=== PATIENT | female | born 1965 | race Caucasian/White ===

== ENCOUNTER 2018-07-06 00:19 | Outpatient (CLI) | payer MEDICAID, SELFPAY ==
--- NOTE | 2018-07-06 10:06 | DI.RAD_ITS ---
SYMPTOMS/DIAGNOSIS: CHRONIC RT GREAT TOE PAIN, M79.674 RIGHT GREAT TOE: Four views. No priors. At the first metatarsal phalangeal joint there is moderate joint space narrowing and periarticular spurring. Mild subchondral sclerosis is seen. The interphalangeal joint is well maintained. No acute fracture, dislocation, lytic or sclerotic lesion is seen. The soft tissues are unremarkable. IMPRESSION: Moderate degenerative changes of the first metatarsal phalangeal joint.
== END 2018-07-06 00:39 ==
PROVIDERS: PCP Nurse Practitioner; Visit Provider Nurse Practitioner
DX: M79.674 Pain in right toe(s) (principal); M19.071 Primary osteoarthritis, right ankle and foot
CPT/HCPCS: 73660

== ENCOUNTER 2018-07-17 00:54 | Outpatient (CLI) | payer MEDICAID, SELFPAY ==
--- NOTE | 2018-07-17 13:00 | DI.MAMMO_ITS ---
SYMPTOMS/DIAGNOSIS: SCREENING, Z12.31 MAMMOGRAM: Mammograms were interpreted according to the usual protocol including computer analysis with CAD system, tomosynthesis and C view imaging. Comparison with prior examinations. Breast density A. No suspicious masses or microcalcifications are seen. The nodule in the medial left breast appears stable. The skin and axilla are unremarkable. IMPRESSION: No evidence for malignancy. Yearly mammography is recommended. Category 2. MQSA ASSESSMENT OF FINDINGS: Negative with benign findings. Category 2. Patient will receive a letter notifying them of these results. BI-RAD category A. The breasts are almost entirely fatty.
== END 2018-07-17 01:14 ==
PROVIDERS: PCP Nurse Practitioner; Visit Provider Nurse Practitioner
DX: Z12.31 Encounter for screening mammogram for malignant neoplasm of breast (principal)
CPT/HCPCS: 77063; 77067

== ENCOUNTER 2018-08-21 13:35 | Outpatient (CLI) | payer MEDICAID, SELFPAY ==
[2018-08-21 14:25] LABS: HCT 40.7 % (36.0-46.0); HGB 13.2 g/dL (12.0-15.5); Mean Corp. HGB Concentration 32.4 g/dL (32.0-36.0); Mean Corpuscular Hemoglobin 28.1 pg (27.0-33.0); Mean Corpuscular Volume 86.8 fL (80-95); Mean Platelet Volume 9.2 fL (8.0-11.0); Platelet Count 292 x1000/uL (130-400); RBC 4.69 m/cumm (4.00-5.20); RBC Distribution Width 12.8 % (11.7-14.6); White Blood Cell Count 5.79 k/cumm (4.4-10.8)
[2018-08-21 14:43] LABS: Hemoglobin A1C 6.7 % (4.5-6.2)
[2018-08-21 15:23] LABS: ALT 20 U/L (12-78); AST 14 U/L (15-37); Albumin 3.7 g/dL (3.4-5.0); Alkaline Phosphatase 107 U/L (46-116); Anion Gap 10.3 mmol/L (3-11); BUN 17 mg/dL (7-18); Bilirubin, Total 0.2 mg/dL (0.2-1.0); CO2 26.7 mmol/L (21.0-32.0); CREATININE 0.87 mg/dL (0.55-1.02); Calcium 9.2 mg/dL (8.5-10.1); Chloride 103 mmol/L (98-107); Cholesterol 233 mg/dL (50-200); Glucose 119 mg/dL (70-100); HDL Cholesterol 51 mg/dL (40-60); LDL CHOLESTEROL 155 mg/dL (<100); Potassium 4.1 mmol/L (3.5-5.1); Sodium 140 mmol/L (136-145); Total Protein 7.2 g/dL (6.4-8.2); Triglyceride 116 mg/dL (30-150)
== END 2018-08-21 13:55 ==
PROVIDERS: PCP Nurse Practitioner; Visit Provider Podiatrist Foot & Ankle Surgery
DX: E78.00 Pure hypercholesterolemia, unspecified (principal); R73.01 Impaired fasting glucose; F33.9 Major depressive disorder, recurrent, unspecified; M79.9 Soft tissue disorder, unspecified
CPT/HCPCS: 36415; 80053; 80061; 83721; 85027; 83036

== ENCOUNTER 2018-08-31 07:56 | Day surgery (SDC) | payer MEDICAID, SELFPAY ==
--- NOTE | 2018-08-31 06:19 | W.COLOREPORT ---
Date of service: 08/31/18 Time of Service: 09:07 Colonoscopy Report Date of procedure: 08/31/18 Pre-op diagnosis general: Colon Cancer Screening Post-op diagnosis procedure note: other (multiple polyps) Procedure: colonoscopy with polypectomy by cold forceps Surgeon: Kylie Keller Anesthesia proc note operative: MAC (Kimberlee Carlson,SIDNEY/ ASA 2) Estimated blood loss (mL): 5 Pathology: other (ascending polyp, sigmoid polyp x6) Complications: None Disposition: same day Indications: Mrs. De La Cruz is a pleasant 52 year old female who was seen in the office for a screening colonoscopy. Risks, benefits and complications have been reviewed. Complications include but are not limited to bleeding, pain, perforation, missed small lesion/polyp, sore throat, aspiration and adverse reaction to the medications. Questions were entertained and answered to their satisfaction and they wished to proceed. No guarantees were given or implied. Prep: Miralax/Dulcolax Procedure Start Time: 09:07 Procedure End Time: 09:36 Retraction Time: 20 Findings: multiple polyps. Most are more then likely hyperplastic Procedure Description: After informed consent was obtained the patient was taken to the procedure room and placed in a left decubitous position. Monitors were applied and a time out was done. The patients name, date of , procedure, allergies to medications and metal in their body was reviewed. The patient was then sedated. Once sedated and comfortable a rectal exam was done. External exam was normal. Internal exam revealed a normal sphincter tone and no palpable masses. The scope was then introduced and retro-flexed. No internal hemorrhoids were identified. The scope was then advanced to the cecum without difficulty. The TI and appendiceal orifice were identified. The prep was adequate. The scope was then slowly retracted over 20 minutes back into the rectum. Polyps were removed in the ascending colon x1 and in the sigmoid colon x5. The scope was removed and the patient was woken up and taken back to Same day surgery in stable condition. The patient tolerated the procedure well and there were no immediate complications. Follow up: The patient should follow up in 3-5 years unless they develop changes in bowel habits or other new gastrointestinal complaints.
--- NOTE | 2018-08-31 06:21 | W.PM.DSUDISC ---
Discharge Plan Disposition Patient Disposition: HOME Condition: Good Discharge Details Reason For Visit: Colon Cancer Screening Attending Provider: Kylie Keller Primary Care Provider: Sidra Balderas Home Meds and New Rx's Prescriptions: Continued aspirin 325 mg tablet 325 mg PO DAILY RF: 0 sertraline 100 mg tablet 200 mg PO DAILY Qty: 180 RF: 1 prazosin 5 mg capsule 15 mg PO HS Qty: 90 RF: 3 ibuprofen 800 mg tablet 800 mg PO TID PRN (Reason: fever or pain) Qty: 90 RF: 3 acetaminophen [Tylenol Arthritis Pain] 650 mg tablet extended release 650 mg PO Q8H PRN (Reason: fever or pain) Qty: 90 RF: 3 Discontinued bisacodyl [Dulcolax (bisacodyl)] 5 mg tablet,delayed release (DR/EC) 5 mg PO ONCE Qty: 4 RF: 0 polyethylene glycol 3350 17 gram/dose powder 255 g PO ONCE Qty: 255 RF: 0 Discharge Instructions Instructions: Colonoscopy (DC), Colorectal Polyps (DC) Additional Instructions: Findings: multiple polyps Follow up: 3-5 years Please call if you develop: fevers >101.5 Nausea or Vomiting Abdominal pain that is not transient DAY SURGERY UNIT POST COLONOSCOPY INSTRUCTIONS 1. Because there will be medication in your system for the next 24 hours, you may feel a little sleepy. Your coordination will be affected. Therefore: a. Do not drive or operate dangerous equipment for 24 hours. b. Do not drink alcohol beverages for 24 hours (not even beer). c. Plan to go home and rest for the day. 2. Generally there are no restrictions on your activity after a day or so has gone by, but you may feel a bit fatigued for a few days. 3 After you arrive home you may have a light meal and return to a normal diet as you can tolerate it without feeling sick to your stomach. 4. After surgery, you may feel pain or discomfort. This should be only transient, but if it persists please contact your doctor. 5. If there are any questions regarding the findings of your procedure, please feel free to contact your doctor. 6. If you are unable to contact your doctor with a problem, contact the hospital at [phone]. 7. Continue all your regular medications unless directed otherwise. I understand the above instructions and have no questions. Signature of Patient or Responsible Adult Escort Date/Time Name of Responsible Adult Escort Signature of Nurse Date/Time Activity:: Activity as Tolerated Diet:: As Tolerated Discharge Orders Discharge Orders: Discharge Order (Routine); Ordered 08/31/18 Ordered By: Kylie Keller DS: Diagnosis Discharge Diagnosis (1) S/P colonoscopy: Status: Acute (2) Colorectal polyps: Status: Acute
[2018-08-31 08:14] VITALS: BP 108/77; PULSE 66; RESP 16; TEMP 36.2; O2SAT 98
[2018-08-31] MEDS: Lactated Ringers 1,000 ML 80 ML IV (08:40)
--- NOTE | 2018-08-31 09:21 | BOWEL_PTH ---
PATIENT: Telma De La Cruz LOC: [facility] U#:[id number] AGE/SX: 52/F ROOM: RE08/31/[address]: Kylie Keller MD : 1965 BED: DIS: 08/31/2018 SPEC #: [id number] RECD: 08/31/18 12:51 STATUS: SENTHIL REMarian #: [id number] NICOLAS: 08/31/18 09:[address]: Kylie Keller DEPT: Surgical Specimen RECD BY: Barby Atkins ENTERED: 08/31/18 12:52 SP TYPE: Bowel OTHR DR: Sidra Balderas APRN Tissues: 1 - BIOPSY BOWEL 2 - BIOPSY BOWEL Procedures: GROSS AND MICRO LEVEL 4 Comments: [id number]
[2018-08-31 09:41] VITALS: BP 111/56; PULSE 57; RESP 18; TEMP 36.2; O2SAT 94
== END 2018-08-31 10:45 | disposition home or self-care (01) ==
LOC: SUR 07:56
PROVIDERS: PCP Nurse Practitioner; Visit Provider Surgery
PROC: 0DJD8ZZ Inspection of Lower Intestinal Tract, Via Natural or Artificial Opening Endoscopic (ICD-10-PCS; CPT 45378; principal; 2018-08-31 09:15)
DX: Z12.11 Encounter for screening for malignant neoplasm of colon (principal); D12.2 Benign neoplasm of ascending colon; K63.5 Polyp of colon; E11.9 Type 2 diabetes mellitus without complications; F17.210 Nicotine dependence, cigarettes, uncomplicated
CPT/HCPCS: 45380; 88305

== ENCOUNTER 2018-09-03 00:51 | Outpatient (CLI) | payer MEDICAID, SELFPAY ==
[2018-09-03] MEDS: Gadoterate meglumine 20 ML VIAL 15 ML IVP (14:51)
--- NOTE | 2018-09-03 15:09 | DI.MRI_ITS ---
SYMPTOM/DIAGNOSIS: SOFT TISSUE MASS, M79.9, RT FOOT PAIN RIGHT FOOT MRI: Pre and post contrast MRI of the right foot was performed. An external marker was placed on the dorsal aspect of the foot at the level of the first and second metatarsal heads. The underlying soft tissues show no evidence of a mass. Following contrast administration, no enhancing lesion is identified. There is edema seen in the soft tissues in the intermetatarsal region at the first and second heads likely reflecting bursitis. At the first metatarsal phalangeal joint, there is subchondral edema and joint space narrowing. There are osteophytes arising from both the base of the proximal phalanx and the head of the first metatarsal. The findings are most suggestive of osteoarthritis. No findings to suggest an occult fracture or osteomyelitis are present. No findings to suggest avascular necrosis are seen. No significant joint effusions are present. The visualized tendons appear grossly unremarkable. IMPRESSION: 1. No evidence of a soft tissue mass identified in the region of the external marker. 2. Degenerative changes seen at the first metatarsal phalangeal joint. 3. Fluid between the first and second metatarsal heads suggesting bursitis.
--- NOTE | 2018-09-03 15:58 | DI.VRAD_ITS ---
EXAM: MRI Right Lower Extremity Without and With Contrast, Foot EXAM DATE/TIME: 09/03/2018 3:06 PM CLINICAL HISTORY: 52 years old, female; Condition or disease; Other: Soft tissue mass TECHNIQUE: MR of the Right foot without and with intravenous contrast. COMPARISON: CR XR toe RT great 07/06/2018 9:57 AM FINDINGS: An external marker is present over the dorsal aspect at the level of the first and second metatarsals distally. The underlying subcutaneous soft tissues appear unremarkable. No discrete mass is identified here or elsewhere. Deeper soft tissues, between the first and second metatarsal heads, there is a small nonenhancing fluid density focus, suggestive of intermetatarsal bursitis. No similar finding is evident elsewhere. There are degenerative changes, most pronounced at the first metatarsophalangeal joint, as on the radiographs. There is no significant effusion of this or any other joints. Marrow edema about this joint is likely degenerative. There is no evidence for fracture. The joint spaces are normally aligned. There is no significant tendon abnormality or peritendinous collection. IMPRESSION: 1. No mass identified, including at the level of an external marker over the dorsal aspect of the first and second metatarsals distally. 2. Small fluid between the first and second metatarsal heads, suggesting intermetatarsal bursitis. 3. Degenerative changes, as on radiographs of 07/06/18. Dictated and Authenticated by: Jose Flores MD. Ordering:SHAARD Lee MD
== END 2018-09-03 01:11 ==
PROVIDERS: PCP Nurse Practitioner; Visit Provider Podiatrist Foot & Ankle Surgery
DX: R22.41 Localized swelling, mass and lump, right lower limb (principal); M79.89 Other specified soft tissue disorders; M79.671 Pain in right foot; M19.071 Primary osteoarthritis, right ankle and foot; M71.571 Other bursitis, not elsewhere classified, right ankle and foot
CPT/HCPCS: 73720

== ENCOUNTER 2018-11-20 13:59 | Outpatient (CLI) | payer MEDICAID, SELFPAY ==
[2018-11-21 13:30] LABS: Rubella IgG Ab (UVM) Negative
[2018-11-23 12:19] LABS: HBs Antibody, Quant <3.1 mIU/mL; Hepatitis B Surface Ab Negative
== END 2018-11-20 14:19 ==
PROVIDERS: PCP Nurse Practitioner; Visit Provider Nurse Practitioner
DX: Z01.84 Encounter for antibody response examination (principal)
CPT/HCPCS: 36415; 86706; 86762

== ENCOUNTER 2019-05-25 11:47 | Outpatient (CLI) | payer MEDICAID, SELFPAY ==
[2019-05-25 13:30] LABS: Anion Gap 8.7 mmol/L (3-11); BUN 13 mg/dL (7-18); CO2 28.3 mmol/L (21.0-32.0); CREATININE 0.85 mg/dL (0.55-1.02); Calcium 9.2 mg/dL (8.5-10.1); Calculated LDL 118 mg/dL; Chloride 107 mmol/L (98-107); Cholesterol 199 mg/dL (50-200); Glucose 97 mg/dL (70-100); HDL Cholesterol 47 mg/dL (40-60); Potassium 3.7 mmol/L (3.5-5.1); Sodium 144 mmol/L (136-145); Triglyceride 171 mg/dL (30-150)
== END 2019-05-25 12:07 ==
PROVIDERS: PCP Nurse Practitioner; Visit Provider Nurse Practitioner
DX: E11.9 Type 2 diabetes mellitus without complications (principal); Z01.818 Encounter for other preprocedural examination; E78.00 Pure hypercholesterolemia, unspecified
CPT/HCPCS: 36415; 80048; 80061

== ENCOUNTER 2019-08-20 09:01 | Outpatient (CLI) | payer MEDICAID, SELFPAY ==
[2019-08-20 09:19] LABS: HGB 13.6 g/dL (12.0-15.5); Mean Corp. HGB Concentration 31.6 g/dL (32.0-36.0); Mean Corpuscular Hemoglobin 27.5 pg (27.0-33.0); Mean Corpuscular Volume 86.9 fL (80-95); Mean Platelet Volume 8.9 fL (8.0-11.0); Platelet Count 374 x1000/uL (130-400); RBC 4.95 m/cumm (4.00-5.20); RBC Distribution Width 13.1 % (11.7-14.6); White Blood Cell Count 5.74 k/cumm (4.4-10.8)
[2019-08-20 09:43] LABS: Hemoglobin A1C 6.5 % (3.8-5.6)
[2019-08-20 10:22] LABS: ALT 23 U/L (14-59); AST 15 U/L (15-37); Albumin 3.6 g/dL (3.4-5.0); Alkaline Phosphatase 105 U/L (46-116); Anion Gap 9.6 mmol/L (3-11); BUN 14 mg/dL (7-18); Bilirubin, Total 0.2 mg/dL (0.2-1.0); CO2 25.4 mmol/L (21.0-32.0); CREATININE 0.81 mg/dL (0.55-1.02); Calculated LDL 209 mg/dL (<100); Chloride 105 mmol/L (98-107); Cholesterol 279 mg/dL (<200); Glucose 131 mg/dL (74-106); HDL Cholesterol 46 mg/dL (40-60); Potassium 4.1 mmol/L (3.5-5.1); Sodium 140 mmol/L (136-145); Triglyceride 120 mg/dL (<150)
== END 2019-08-20 09:21 ==
PROVIDERS: PCP Nurse Practitioner; Visit Provider Nurse Practitioner
DX: E11.9 Type 2 diabetes mellitus without complications (principal); I10 Essential (primary) hypertension; R42 Dizziness and giddiness; R25.3 Fasciculation
CPT/HCPCS: 36415; 80053; 80061; 85027; 83036; 84443

== ENCOUNTER 2019-08-26 03:06 | Outpatient (CLI) | payer MEDICAID, SELFPAY ==
--- NOTE | 2019-08-26 13:00 | NS.NUTBLAN_ITS ---
Telma was referred to me for hyperlipidemia. Met with Telma in office today. Chart review indicates borderline diabetes (A1C: 6.4%), elevated cholesterol, elevated LDL, well controlled HDL and triglycerides. BMI 32. Reviewed risks associated with lab values and reviewed her diet/exercise habits. Diet recall indicates reliance on convenience foods, high amounts of saturated fats and low in fruit/vegetable intake. Telma is sedentary in winter time. Educated Telma on how to follow a Mediterranean diet with emphasis on lean protein, vegetarian protein sources, unsaturated fats and wholel grains. Telma was engaged in education and education material and contact information provided for follow. I am confident that Telma will make positive choices for her health. Plan: 1. 10% weight loss, 2. 30 min cardio daily, 3. follow Mediterranean diet plan. 4. follow up with physician as recommended.
== END 2019-08-26 03:26 ==
PROVIDERS: PCP Nurse Practitioner; Visit Provider Nurse Practitioner
DX: E78.5 Hyperlipidemia, unspecified (principal); R73.03 Prediabetes; Z71.3 Dietary counseling and surveillance
CPT/HCPCS: 97802

== ENCOUNTER 2020-03-02 03:09 | Outpatient (CLI) | payer MEDICAID, SELFPAY ==
[2020-03-02 10:24] LABS: Calculated LDL 183 mg/dL (<100); Cholesterol 248 mg/dL (<200); HDL Cholesterol 42 mg/dL (40-60); Triglyceride 116 mg/dL (<150)
== END 2020-03-02 03:29 ==
PROVIDERS: PCP Nurse Practitioner; Visit Provider Nurse Practitioner
DX: E78.5 Hyperlipidemia, unspecified (principal)
CPT/HCPCS: 36415; 80061

== ENCOUNTER 2020-05-30 02:16 | Outpatient (CLI) | payer MEDICAID, SELFPAY ==
[2020-05-30 09:07] LABS: HCT 39.6 % (36.0-46.0); HGB 12.3 g/dL (11.2-15.7); MCH 27.6 pg (27.0-33.0); MCHC 31.1 % (32.0-36.0); MCV 88.8 fL (80-95); MPV 9.3 fL (8.0-11.0); Platelet Count 310 10^3/uL (130-400); RBC 4.46 10^6/uL (3.93-5.22); RDW 12.7 % (11.7-14.6); RDW-SD 41.6 fL; WBC 6.03 10^3/uL (4.4-10.8)
[2020-05-30 09:08] LABS: Hemoglobin A1C 6.7 % (<5.7)
[2020-05-30 10:04] LABS: ALT 28 U/L (14-59); AST 17 U/L (15-37); Albumin 3.6 g/dL (3.4-5.0); Alkaline Phosphatase 127 U/L (46-116); BUN 12 mg/dL (7-18); Bilirubin, Total 0.2 mg/dL (0.2-1.0); CREATININE 0.88 mg/dL (0.55-1.02); Calcium 8.5 mg/dL (8.5-10.1); Chloride 106 mmol/L (98-107); Glucose 146 mg/dL (74-106); Potassium 4.2 mmol/L (3.5-5.1); Sodium 142 mmol/L (136-145); Total Protein 6.6 g/dL (6.4-8.2)
[2020-05-30 10:15] LABS: Calculated LDL 75 mg/dL (<100); Cholesterol 139 mg/dL (<200); HDL Cholesterol 44 mg/dL (40-60); Triglyceride 104 mg/dL (<150)
== END 2020-05-30 02:36 ==
PROVIDERS: PCP Nurse Practitioner; Visit Provider Nurse Practitioner Family
DX: I95.1 Orthostatic hypotension (principal); E11.9 Type 2 diabetes mellitus without complications
CPT/HCPCS: 36415; 80053; 80061; 85027; 83036

== ENCOUNTER 2020-09-01 02:57 | Outpatient (CLI) | payer MEDICAID, SELFPAY ==
--- NOTE | 2020-09-01 08:00 | DI.RAD_ITS ---
EXAM: XR CHEST 2V PA LATERAL CLINICAL HISTORY: Dry cough for one year. Smokes about 5 cigs/day,R05 TECHNIQUE: 2D digital imaging was performed. COMPARISON: No exams were available for comparison FINDINGS: MEDIASTINUM: Normal. HEART: Normal. PULMONARY VASCULATURE: Normal. LUNGS: Clear. PLEURAL SPACE: No pleural effusion or pneumothorax. BONE:Normal. OTHER FINDINGS:Normal. IMPRESSION: No acute pulmonary findings. DATA REPOSITORY: RADIATION DOSE DELIVERED:
== END 2020-09-01 02:58 ==
LOC: DI 02:57
PROVIDERS: PCP Nurse Practitioner; Visit Provider Nurse Practitioner
DX: F17.210 Nicotine dependence, cigarettes, uncomplicated (principal); R05 Cough
CPT/HCPCS: 71046

== ENCOUNTER 2021-01-03 01:14 | Outpatient (CLI) | payer MEDICAID, SELFPAY ==
--- NOTE | 2021-01-03 15:20 | DI.MAMMO_ITS ---
Exam(s) MAMMO SCREENING EXAM: MAMMO SCREENING CLINICAL HISTORY: screening,Z12.39. TECHNIQUE: Bilateral full field digital CC and MLO mammographic images were obtained with 3D tomosyn thesis and utilizing computer aided detection (CAD). COMPARISON: Prior mammograms dating back to 2017, the most recent being June 2018. FINDINGS: There are no CAD designations. There are no new significant focal findings in the right breast. In the left breast there is a medially located nodular density which is unchanged from 2017 and there fore benign, this measuring approximately 9 x 7 millimeters and located 9 cm in from the nipple. On the present study there is a subtle suggestion of a new noncalcified inferiorly located nodule in the medial aspect of the left breast measuring approximately 7 x 6 millimeters and located approximat cary 13 cm in from the nipple. There is no significant architectural distortion nor skin thickening-retraction. IMPRESSION: No radiographic evidence of malignancy in right breast. In addition to a stable left breast nodule there is suggestion of an additional possible nodule locat ed inferiorly, as described above. Spot compression and possible ultrasound recommended. BI-RADS Category 0 - Assessment Incomplete: Need additional imaging evaluation Breast Density - Category B - Scattered areas of fibroglandular density Breast density Category C or D implies that the patient has dense breast tissue. Dense breast tissue can make it harder to find cancer on a mammogram. Dense breast tissue is also associated with an incr eased risk of breast cancer. This information about the result of the mammogram report was provided to the patient to raise their awareness. Use this report when you speak with the patient about their risks for breast cancer, which includes their family history. At that time, you may recommend additional screening tests (Ultrasoun d or MRI) as these tests may add significant information. A negative radiographic report should not delay biopsy if a dominant or clinically suspicious mass is present. Up to ten percent of cancers are not identified on mammography. A negative report may reinforce clinical impression. Adenosis and dense breasts may obscure an underlying neoplasm. False positive reports average 6 to 10%. Patient will receive a letter notifying them of these results.
== END 2021-01-03 01:34 ==
PROVIDERS: PCP Nurse Practitioner; Visit Provider Nurse Practitioner
DX: Z12.31 Encounter for screening mammogram for malignant neoplasm of breast (principal); R92.8 Other abnormal and inconclusive findings on diagnostic imaging of breast
CPT/HCPCS: 77063; 77067

== ENCOUNTER 2021-01-11 03:15 | Outpatient (CLI) | payer MEDICAID, SELFPAY ==
--- NOTE | 2021-01-11 13:26 | DI.MAMMO_ITS ---
Exam(s) MAMMO SCREEN CALL BACK UNI EXAM: MAMMO SCREEN CALL BACK UNI-LEFT CLINICAL HISTORY: ? SUBTLE SUGGESTION NODULE LT BREAST. TECHNIQUE: Unilateral spot mammographic images were obtained with 3D tomosynthesis and utilizing Kula Causeser aided detection (CAD). .. COMPARISON: Prior mammograms were reviewed. This additional imaging was performed due to findings described on the recent screening mammogram of . FINDINGS: Additional mammographic views performed todaywas performed with a skin marker of this area and reveal s that this new nodular density inferomedially in the left breast corresponds to a skin mole. Ultrasound was therefore not performed. IMPRESSION: Benign findings. No radiographic evidence of malignancy in left breast. Appropriate follow-up is to keep this patient yearly mammogram schedule, with earlier imaging if a se lf detected breast changes noted. The patient was informed of these findings and recommendations prior to leaving the department today. BI-RADS Category 2 - Benign Findings Breast Density - Category B - Scattered areas of fibroglandular density Breast density Category C or D implies that the patient has dense breast tissue. Dense breast tissue can make it harder to find cancer on a mammogram. Dense breast tissue is also associated with an incr eased risk of breast cancer. This information about the result of the mammogram report was provided to the patient to raise their awareness. Use this report when you speak with the patient about their risks for breast cancer, which includes their family history. At that time, you may recommend additional screening tests (Ultrasoun d or MRI) as these tests may add significant information. A negative radiographic report should not delay biopsy if a dominant or clinically suspicious mass is present. Up to ten percent of cancers are not identified on mammography. A negative report may reinforce clinical impression. Adenosis and dense breasts may obscure an underlying neoplasm. False positive reports average 6 to 10%. Patient will receive a letter notifying them of these results.
== END 2021-01-11 03:35 ==
PROVIDERS: PCP Nurse Practitioner; Visit Provider Nurse Practitioner
DX: Z12.31 Encounter for screening mammogram for malignant neoplasm of breast (principal); R92.8 Other abnormal and inconclusive findings on diagnostic imaging of breast
CPT/HCPCS: 77063; 77067

== ENCOUNTER 2021-03-15 09:32 | Outpatient (CLI) | payer MEDICAID, SELFPAY ==
--- NOTE | 2021-03-15 09:30 | RT.EKG_ITS ---
APPROVED REPORT Exam: Resting ECG Reason for Exam: h/o tachycardia Patient Location: O HR:67 bpm ECG Measurements Heart Rate 67 AXIS LA 125 P 10 QRSd 79 QRS 52 QT 398 T 64 QTc 420 Conclusion Sinus rhythm...normal P axis, V-rate 60- 99 Normal Electrocardiogram
== END 2021-03-15 09:33 | disposition home or self-care (01) ==
LOC: DI.KIM 09:33
PROVIDERS: PCP Nurse Practitioner; Visit Provider Nurse Practitioner
DX: R00.0 Tachycardia, unspecified (principal)
CPT/HCPCS: 93010

== ENCOUNTER 2021-03-16 07:16 | Outpatient (RCR) | payer MEDICAID, SELFPAY ==
--- OUTSIDE RECORDS SUMMARY | 2021-03-16 07:22 | XMS_ITS ---
:1965 Author Organization [facility] Address [address] [place] [address] Care Team Providers Name Role Phone Ruelle Unavailable Unavailable PROBLEMS Unknown Problems ALLERGIES Substance Reaction Event Type Date Status penicillin Unknown Non Drug Allergy Feb, Active ENCOUNTERS Encounter Location Date Diagnosis [facility] Feb, [place] [address] foot, initia l encounter S96.911A [facility], [place] [address] [facility] [place] [address] [facility], Jul, [place] [address] M20.5X1 and Buni on of left foot M21.612 [facility] Jun, [place] [address] M20.5X1 and Bunion of left foot M21.612 [facility] [address] [facility] Jun, [place] [address] M20.5X1 [facility] [address] [facility] C May, [place] [address] M20.5X1 SURGERY [address] [facility] May, [place] [address] SURGERY [address] [facility] May, [place] [address] [facility], [place] [address] [facility], [place] [address] [facility] [address] [facility] C Mar, [place] [address] M20.5X1 and Bunion of left foot M21.612 [facility] [address] [facility] C Sep, [place] [address] M20.5X1 [address]MIN[address]ATION [address] [facility] [address] Aug, [place] [address] [facility] [address] [facility], Jul, [place] [address] [facility] [address] [facility] [address] Jul, Soft tissue [place]79[place]9 [place] [address] Bunion of le ft foot M21.612 [facility] [address] [facility], [place] [address] IMMUNIZATIONS No Known Immunizations SOCIAL HISTORY Qualifiers Date Current Smoker REASON FOR REFERRAL FUNCTIONAL STATUS PLAN OF CARE Activity Details Follow Up prn Reason: Future Test X Foot L 3V [id number] Future Test BUN 20180820 Future Test CREATININE W EGFR 20180820 Future Test MR Lower Ext R w + w/o (7372 0) 20180820 VITAL SIGNS Height 62 in 2020-02-23 Weight 180 lbs 2020-02-23 BMI 32.92 kg/m2 2020-02-23 Temperature 97.2 degrees Fahrenheit 2020-02-23 Heart Rate 66 /min 2020-02-23 Respiratory Rate 18 /min 2020-02-23 Oximetry 97 % 2020-02-23 MEDICATIONS Medication Instructions Dosage Frequency Start End Duration Statu s Date Date B12 Folate as directed Active 800-800 MCG traZODone HCl Orally Once a 1 tablet at 24h 30 day(s ) Active 50 MG day bedtime as needed Prazosin HCl 2 orally once a 3 cap(s) 24h Ac tive mg day D3 Adult 1000 Orally Once a 1 tablet 24h 30 day(s) A ctive UNIT day Aspirin 325 mg orally once a 1 tab(s) 24h 30 day(s) Active day Sertraline HCl orally once a 1 tab(s) 24h 30 day(s) Active 100 mg day PROCEDURES No Known procedures RESULTS Name Result Date Reference Range X Foot R 3V 2019-06-10 See Below For Report MULTIPLE LABS 2019-05-25 MULTIPLE LABS 2018-08-21 BUN 2018-08-21 BUN 17 BUN BUN* CREATININE W EGFR 2018-08-21 CREATININE STANDARDIZED 0.87 ESTIMATED GLOMERULAR FILTRATION >=60.00 EGFR INTERPRETATION AGE CREATININE* MR Lower Ext R w + w/o (93667) 2018-09-03 Image Accessible REASON FOR VISIT follow up , pt states that she is here for a follow up visit , pt states that she is having pain in the ball area of the right foot,, pt states that the pain started again on or around 01/28/20 and is mostly when she takes a step on the ball of the foot, follow up,no symptoms, xray question, 3 mo f/u r hallux limitus Patient need x-rays of left foot at this visit-HL, Referral done , 11/07 reschedule patient, Post op #4, referral done, Last seen by ALR on 06/30/19 for Post Op 3 -HL , DOS 06/10/19 Procedure Cheilectomy of the right first metatarsophalangeal joint -HL, Patient may need xrays done today -HL, pt states that she is still having pain , pt atates that sriving makes the pain worse , pt states that she has been her exercises, but only once a day instead of three, pt is wondering how long she sould be using the silicone tape , Post op #4, referral done, Post op #3 ok per HL, referral done,DOS 06/10/19 Procedure Arthrodesis of the right first metatarsophalangeal joint -KG, anticipated suture removal today, pt states when she bends R hallux it cracks. and there is pain present on bottom of R hallux as well-KG, pt states she has bunion on Left foot and would like to know recommendations-KG, needs xrays at next visit, POST OP 2, referral done, pt states that things are going great , pt states that there is no pain, only irration from the buckle of the surgical shoe is getting to her, ptstates that she has changed the bandages twice over the past week , POST OP 1, referral done, DOS 06/10/19 Cheilectomy of the right first metatarsophalangeal joint-KG, Right first MTPJ Arthrodesis, Arhtodesis Right 1st [place] Jt, Referral Done, PDMP Query surgery 06/10/19, Information for PCP regrading upcoming surgery, pre op appt, last seen by ALR 10/14/18 for discussion of right great toe osteoarthritis, MRI, and plan of care, recommend arthrodesis of the first metatarsophalangeal joint per last note , was to continue with camwalker and lidoderm patch , no surgery date yet, needs paperwork still , Discuss MRI and treatment options, R great toe pain, pt states R toe pain still prominant-KG, MRI - additional info required , Change MRI order per protocol, Pain in Right great toe, NEW POD PATIENT, ptstates she is here for right great toe, pt says toe is very painful, pt states left great toe also hurts but not as much, pt states it has been going on for a few years but worse recently, xrays were done at [facility] 1-2 months ago, Updating patients chart, Pain in great (R) toe Insurance Providers [facility] Health Member Patient Patient Patient Patient Patient Subscriber Subscriber Subscriber Group Insurance Plan Plan Plan Plan ID Relationship Address Phone Name Date of ID Name Date of No Type Insurance Insurance Insurance Coverage to Subscriber Address Phone Name Dates SELF PAY [address] STREET SELF PAY self [place] [id number] [place] [id number] INSURANCE MEDICAID E[place] MEDICAID self [place]Z [id number] [place] [id number] MEDICAID EDS MEDICAID self [place] [id number] [place] [id number] MEDICAID EDS MEDICAID self [place] DE [place] [id number] [place] [facility] [id number] MEDICAL (GENERAL) HISTORY Type Description Date Medical History Chronic right great toe pain Medical History Low back pain Medical History Carpal tunnel syndrome Medical History Lateral epiconylitis/tennis elbow Medical History Tobacco use disorder Medical History Major depression, recurrent Medical History Depression with anxiety Medical History Hidradenitis suppurativa Medical History Candidiasis of skin Medical History Carbuncle Surgical History Hysterectomy Surgical History Cholecystectomy Surgical History Cheilectomy Right First Metatarsophangea l Joint 06/10/19
--- NOTE | 2021-03-16 08:30 | HOLTER_ITS ---
APPROVED REPORT Conclusion This is a 48-hour monitor ordered for indication of chest pains. The patient was in normal sinus rhythm for the majority of the recording with an average heart rate o f 71 bpm. There were no episodes of ventricular tachycardia and 5 total PVCs. There were no episodes of supraventricular tachycardia and rare PACs. There were no episodes of atrial fibrillation, no pauses greater than 3 seconds and no evidence of hi gh degree heart block. There were 2 patient diary events associated with dizziness neither of which correlated with an arrhy thmia.
== END 2021-03-20 23:59 | disposition home or self-care (01) ==
LOC: RT 07:16
PROVIDERS: PCP Nurse Practitioner; Visit Provider Nurse Practitioner
DX: R07.9 Chest pain, unspecified (principal); I49.3 Ventricular premature depolarization
CPT/HCPCS: 93225; 93226

== ENCOUNTER 2021-03-29 01:12 | Outpatient (CLI) | payer MEDICAID, SELFPAY ==
--- NOTE | 2021-03-29 09:15 | DI.NM_ITS ---
APPROVED REPORT Exam: Exercise Treadmill Patient Location: Out-Patient Room/Bed: Stress Nurse: Shaneka Deshpande RN Ordering Provider:NOLAN RODGERS, Contact Number: [phone] BMI: 30.81 Baseline Rhythm: Sinus Rhythm Comment: Inverted T wave lead V2 Indications: Chest pain, SVT Medical History Medical History: SVT, smoker (current), hyperlipidemia, orthostatic hypotension, diabetes type II, ob esity, PTSD, depression Cardiac Medications: Metformin, magnesium oxide, diltiazem, atorvastatin, aspirin, nicotine inhalatio n cartridge Allergies: Penicllins Cardiac Risk Factors: Hyperlipidemia, smoker (current), diabetes type II, obesity, family hx Previous Cardiac Procedures: None Pretest Chest Pain Characteristics: None Exercise History: Physically active Physical Disabilities: None Lung Sounds: Clear to auscultation Heart Sounds: Regular Stress Test Details Test: Exercise stress testing was performed using a Gurjit protocol. Nuclear Acquisition: Rest Tc-99m/Stress Tc-99m 1 day Rest Isotope: Tc-99m Sestamibi. Dose: 9.4 Date: 03/29/2021 Injection Time: 0915 Stress Isotope: Tc-99m Sestamibi. Dose: 32.8 Date: 03/29/2021 Injection Time: 1050 HR Resting HR Supine: 63 bpm Max Heart Rate (APMHR): 165.324334 bpm Resting HR Standin bpm Target HR (85% APMHR): 140.244518 bpm Max HR Achieved: 154 bpm % of APMHR: 93.33 Recovery HR: 68 bpm HR response to stress: Normal HR response to stress Comment: Diltiazem held for 24 hrs BP Resting BP Supine: 112/62 mmHg Resting BP Standin/66 mmHg Max BP: 148/62 mmHg Recovery BP: 116/62 mmHg BP response to stress: Normal blood pressure response to stress. ECG Resting ECG: Sinus Rhythm Ectopy: None Comment: Inverted T wave lead V2 Stress ECG: Sinus Tachycardia ST Change: No significant ST segment changes noted Arrhythmia: Rare PACs Recovery ECG: Sinus Rhythm Recovery ST Change: No significant ST segment changes noted Recovery Arrhythmia: Rare PAC Clinical Reason for Termination: Fatigue Stress Symptoms: General Fatigue Exercise duration: 8 min58 sec Highest Stage Reached: Stage 3: 3.4 mph at 14% grade. Exercise capacity: 10.16 METs Rate Pressure Product: [id number] Stress ECG Conclusion 1. The resting electrocardiogram was normal 2. The patient exercised on the Gurjit protocol and completed a workload of 10.16 METS, stopping due t o fatigue 3. Normal heart rate and blood pressure response to exercise. Patient achieved 93% of predicted hear t rate for age 4. Electrocardiographically there was no evidence of myocardial ischemia 5. There were no significant dysrhythmias Stress Test Summary STAGE Time (mins) Speed (mph) Grade (%) HR BP SYMPTOMS METS Supine 63 112/62 Standing 69 108/66 SpO2 98% 1 3 1.7 10 94 116/64 SpO2 96% 4.6 2 6 2.5 12 128 122/60 SpO2 96% 7 3 9 3.4 14 152 SpO2 94% 10.2 1 min recovery 126 148/62 SpO2 95% 3 min recovery 71 132/64 SpO2 97% 6 min recovery 68 116/62 SpO2 97% MPI Conclusion Normal myocardial perfusion without evidence of ischemia or prior infarction EF 57% Radiologist Interpretation Radiologist agrees with Restaurant Operations Manager's Interpretation. Radiologist Interpretation by: Odilia Taylor MD Interpretation Date/Time: 03/30/2021 15:37:52
== END 2021-03-29 01:32 ==
PROVIDERS: PCP Nurse Practitioner; Visit Provider Nurse Practitioner
DX: R07.9 Chest pain, unspecified (principal); I47.1 Supraventricular tachycardia; E78.5 Hyperlipidemia, unspecified; Z87.891 Personal history of nicotine dependence; E11.9 Type 2 diabetes mellitus without complications; E66.9 Obesity, unspecified; Z82.49 Family history of ischemic heart disease and other diseases of the circulatory system
CPT/HCPCS: 78452; 93017

== ENCOUNTER 2021-05-01 03:37 | Outpatient (CLI) | payer MEDICAID, SELFPAY ==
[2021-05-01 13:48] LABS: HCT 39.4 % (36.0-46.0); HGB 12.2 g/dL (11.2-15.7); MCH 27.4 pg (27.0-33.0); MCV 88.5 fL (80-95); MPV 9.2 fL (8.0-11.0); Platelet Count 312 10^3/uL (130-400); RBC 4.45 10^6/uL (3.93-5.22); RDW 12.5 % (11.7-14.6); RDW-SD 40.6 fL
[2021-05-01 14:36] LABS: ALT 30 U/L (14-59); AST 18 U/L (15-37); Albumin 3.9 g/dL (3.4-5.0); Alkaline Phosphatase 121 U/L (46-116); Anion Gap 9.7 mmol/L (3-11); BUN 17 mg/dL (7-18); Bilirubin, Total 0.2 mg/dL (0.2-1.0); CO2 27.3 mmol/L (21.0-32.0); CREATININE 0.8 mg/dL (0.55-1.02); Calcium 9.2 mg/dL (8.5-10.1); Calculated LDL 78 mg/dL (<100); Chloride 103 mmol/L (98-107); Cholesterol 156 mg/dL (<200); Glucose 130 mg/dL (74-106); HDL Cholesterol 50 mg/dL (40-60); Potassium 4.3 mmol/L (3.5-5.1); Sodium 140 mmol/L (136-145); Triglyceride 140 mg/dL (<150)
== END 2021-05-01 03:38 | disposition home or self-care (01) ==
LOC: LBO 03:37
PROVIDERS: PCP Nurse Practitioner; Visit Provider Nurse Practitioner
DX: E78.5 Hyperlipidemia, unspecified (principal); E11.9 Type 2 diabetes mellitus without complications
CPT/HCPCS: 36415; 80053; 80061; 85027

== ENCOUNTER → 2022-03-18 02:44 | Outpatient (CLI) | payer MEDICAID, SELFPAY ==
--- NOTE | 2022-03-18 15:08 | DI.MAMMO_ITS ---
Exam(s) MAMMO SCREENING EXAM: MAMMO SCREENING CLINICAL HISTORY: screening, Z12.39 TECHNIQUE: Bilateral full field digital CC and MLO mammographic images were obtained with 3D tomosyn thesis and utilizing computer aided detection (CAD). COMPARISON: Available for comparison. FINDINGS: Masses/Architectural Distortion: There is a stable asymmetric density in the medial left breast. No suspicious masses or areas of architectural distortion is seen. There has been no significant change compared to the prior examinations. Microcalcifications: No suspicious pleomorphic-type are seen. Skin Thickening/Nipple Retraction: None. IMPRESSION: 1. No significant interval change with no specific features of malignancy noted. 2. Unless there is more urgent need, screening mammography is recommended, as per [employer] [place] [employer] guidelines. BI-RADS Category 2 - Benign Findings Breast Density - Category B - Scattered areas of fibroglandular density Breast density category C or D implies that the patient has dense breast tissue. Dense breast tissue is very common and is not abnormal but dense breast tissue can make it harder to find cancer on a ma mmogram. Also, dense breast tissue may increase their breast cancer risk. This information about the result of the mammogram report was provided to the patient to raise their awareness. Use this report when you speak with the patient about their risks for breast cancer, which includes their family hist ory. At that time, you may recommend for more screening tests (Ultrasound or MRI) as they might be us eful based on their risk. A negative radiographic report should not delay biopsy if a dominant or clinically suspicious mass is present. Up to ten percent of cancers are not identified on mammography. A negative report may reinforce clinical impression. Adenosis and dense breasts may obscure an underlying neoplasm. False positive reports average 6 to 10%. Patient will receive a letter notifying them of these results.
== END ==
PROVIDERS: PCP Nurse Practitioner; Visit Provider Nurse Practitioner
DX: Z12.31 Encounter for screening mammogram for malignant neoplasm of breast (principal)
CPT/HCPCS: 77063; 77067

== ENCOUNTER 2022-03-19 03:05 | Outpatient (CLI) | payer MEDICAID, SELFPAY ==
[2022-03-19 09:11] LABS: Hemoglobin A1C 6.8 % (<5.7)
[2022-03-19 09:24] LABS: ALT 28 U/L (14-59); AST 14 U/L (15-37); Albumin 3.6 g/dL (3.4-5.0); Alkaline Phosphatase 89 U/L (46-116); BUN 15 mg/dL (7-18); Bilirubin, Total 0.2 mg/dL (0.2-1.0); CREATININE 0.8 mg/dL (0.55-1.02); Calcium 8.7 mg/dL (8.5-10.1); Calculated LDL 89 mg/dL (<100); Chloride 106 mmol/L (98-107); Cholesterol 163 mg/dL (<200); Estimated GFR 86.42 (mL/min/1.73m2); Glucose 132 mg/dL (74-106); HDL Cholesterol 47 mg/dL (40-60); Potassium 3.9 mmol/L (3.5-5.1); Sodium 144 mmol/L (136-145); Total Protein 7.3 g/dL (6.4-8.2); Triglyceride 135 mg/dL (<150)
[2022-03-20 09:21] LABS: Hepatitis B Surface Ag Negative (Negative)
[2022-03-20 09:43] LABS: HIV-1/2 Ag & Ab Screen Negative (Negative)
[2022-03-20 10:08] LABS: Hepatitis C Ab w Rflx HCV PCR Negative (Negative)
[2022-03-20 11:54] LABS: Syphilis Serology (RPR) Negative (Negative)
== END 2022-03-19 03:06 | disposition home or self-care (01) ==
LOC: LBO 03:05
PROVIDERS: PCP Nurse Practitioner; Visit Provider Nurse Practitioner
DX: Z11.59 Encounter for screening for other viral diseases (principal); E11.9 Type 2 diabetes mellitus without complications; E78.5 Hyperlipidemia, unspecified; Z11.4 Encounter for screening for human immunodeficiency virus [HIV]
CPT/HCPCS: 36415; 80053; 80061; 86803; 87340; 87389; 83036; 86592

== ENCOUNTER 2023-02-27 02:44 | Outpatient (CLI) | payer MEDICAID, SELFPAY ==
[2023-02-27 10:54] LABS: ALT 36 U/L (14-59); AST 19 U/L (15-37); Albumin 3.6 g/dL (3.4-5.0); Alkaline Phosphatase 102 U/L (46-116); Anion Gap 9.3 mmol/L (3-11); BUN 12 mg/dL (7-18); Bilirubin, Total 0.2 mg/dL (0.2-1.0); CO2 27.7 mmol/L (21.0-32.0); CREATININE 0.9 mg/dL (0.55-1.02); Calcium 8.9 mg/dL (8.5-10.1); Calculated LDL 92 mg/dL (<100); Chloride 103 mmol/L (98-107); Cholesterol 165 mg/dL (<200); Estimated GFR 74.57 (mL/min/1.73m2); Glucose 118 mg/dL (74-106); HDL Cholesterol 52 mg/dL (40-60); Sodium 140 mmol/L (136-145); Total Protein 7.2 g/dL (6.4-8.2); Triglyceride 108 mg/dL (<150)
== END 2023-02-27 02:45 | disposition home or self-care (01) ==
LOC: LBO 02:44
PROVIDERS: PCP Nurse Practitioner; Referring Provider Nurse Practitioner; Visit Provider Nurse Practitioner
DX: E78.5 Hyperlipidemia, unspecified (principal); E11.9 Type 2 diabetes mellitus without complications
CPT/HCPCS: 36415; 80053; 80061

== ENCOUNTER 2023-07-07 11:13 | Outpatient (REF) | payer MEDICAID, SELFPAY ==
[2023-07-07 16:57] LABS: COVID-19 PCR Negative (Negative); Influenza A PCR Negative (Negative); Influenza B PCR Negative (Negative); RSV PCR Negative (Negative)
[2023-07-07 17:04] LABS: Source Nasopharynx
== END 2023-07-07 11:14 | disposition home or self-care (01) ==
LOC: LBN 11:13
PROVIDERS: PCP Nurse Practitioner; Visit Provider Nurse Practitioner
DX: R09.81 Nasal congestion (principal); R09.89 Other specified symptoms and signs involving the circulatory and respiratory systems; R53.83 Other fatigue
CPT/HCPCS: 87637

== ENCOUNTER 2023-07-09 14:15 | Emergency (ER) | payer MEDICAID, SELFPAY ==
[2023-07-09] VITALS (16 sets, daily range): BP systolic 103–125; BP diastolic 46–76; PULSE 85–122; RESP 12–32; TEMP 36.8; O2SAT 98–100
--- NOTE | 2023-07-09 13:45 | RT.EKG_ITS ---
APPROVED REPORT Exam: Resting ECG Reason for Exam: SVT Patient Location: E HR:94 bpm ECG Measurements Heart Rate 94 AXIS AL 135 P 90 QRSd 70 QRS 60 QT 346 T 66 QTc 434 Conclusion Sinus rhythm...normal P axis, V-rate 60- 99 Nonspecific T abnormalities, anterior leads...T <-0.10mV, V2-V4
--- NOTE | 2023-07-09 14:09 | ED.GENADUL_ITS ---
Discharge Plan Disposition Patient Disposition: Home Condition: Improving Discharge Details Clinical Impression: Paroxysmal supraventricular tachycardia Primary Care Provider: Sidra Balderas ED Provider: Se Mancini Meds and New Rx's Prescriptions: Continued cholecalciferol (vitamin D3) 125 mcg (5,000 unit) capsule 125 mcg PO DAILY metformin 500 mg tablet extended release 24 hr 500 mg PO DAILY Qty: 180 3RF atorvastatin 20 mg tablet 20 mg PO QHS Qty: 90 3RF Trulicity 1.5 mg/0.5 mL pen injector 1.5 mg subcut QWEEK Qty: 2 6RF (DME) lancets [OneTouch Delica Lancets] 33 gauge misc See Dose Instructions .ROUTE .MEDSUPPLY Qty: 100 12RF Dose Instruction: As directed Rx Instructions: Test daily (DME) blood-glucose meter [OneTouch Verio Meter] misc See Dose Instructions .ROUTE .MEDSUPPLY Qty: 1 0RF Dose Instruction: As directed Rx Instructions: As directed (DME) OneTouch Verio test strips Strip See Dose Instructions .ROUTE .MEDSUPPLY Qty: 50 12RF Dose Instruction: As directed Rx Instructions: Test daily ibuprofen 800 mg tablet 800 mg PO TID PRN (Reason: fever or pain) Qty: 90 3RF acetaminophen [Tylenol Arthritis Pain] 650 mg tablet extended release 650 mg PO Q8H PRN (Reason: fever or pain) Qty: 90 3RF trazodone 100 mg tablet 100 mg PO QHS PRN (Reason: sleep) Qty: 90 1RF sertraline 100 mg tablet 200 mg PO DAILY Qty: 180 3RF Discharge Instructions Instructions: Supraventricular Tachycardia (ED) Referrals: Sidra Balderas, SPEEDBOAT OPERATOR [Primary Care Provider] - 1 week Discharge Data Discharge Physician: Se Mancini Medical Decision Making MDM: Summary: Patient presented to the emergency department with rapid A-fib at a heart rate of 190 in the and was given adenosine 6 mg complete resolution of her symptoms. Here in the emergency department she received IV fluids heart rates been in the 80s and 90s with a new EKG that shows normal sinus rhythm. She has history of SVT and takes diltiazem which she states she decided not to take for the last 3 months. Labs are unremarkable except for mild hypomagnesemia and she will be discharged home for follow-up Data Review Analysis All the data on this patient was reviewed by me including laboratory and imaging studies as well as bedside studies performed by me Independent review of Studies Imaging Lab: Labs show hypomagnesemia and no other abnormalities Risk Stratification: Patient with SVT who is back to normal his rhythm will be discharged home and to continue her diltiazem Differential Diagnosis: 1. SVT 2. Rapid A-fib 3. Atrial flutter 4. 5. Consultants: Shared disposition: Patient understands the disposition and will do accordingly Impression: Medical Records Medical records reviewed: Yes I reviewed the patient's medical records. Lab Data Lab results reviewed: Yes I reviewed the patient's lab results. ECG Data Attestation: I personally reviewed and interpreted this ECG (s) as follows: Interpretation: Normal sinus rhythm heart rate [address]-T changes normal axis HPI General Date/Time Provider Initiated Documentation: 07/09/23 14:31 . HPI Narrative: Patient who has a history of SVT who has had an episode last week and took diltiazem that broke but today she had an episode of palpitations called EMS. Did not break and had a heart rate of 190. She was giving adenosine 6 mg IV in the ambulance and the SVT broke now she does not feel the palpitations. Denies any chest pain denies any shortness of breath. Related Data Home Medications Medication Instructions Recorded Confirmed blood-glucose meter ([employer] #1 ea 09/09/18 06/16/23 Verio Meter) cholecalciferol (vitamin D3) 125 125 mcg PO DAILY 11/18/19 07/09/23 mcg (5,000 unit) capsule lancets 33 gauge (c8appsTouch Delica #100 ea 12/19/20 06/16/23 Lancets) blood sugar diagnostic ([employer] #50 ea 08/12/22 06/16/23 Verio test strips) atorvastatin 20 mg tablet 20 mg PO QHS #90 tabs 09/30/22 07/09/23 metformin 500 mg tablet,extended 500 mg PO DAILY #180 tabs 11/25/22 07/09/23 release 24 hr acetaminophen 650 mg 650 mg PO Q8H PRN fever or pain 02/13/23 07/09/23 tablet,extended release (Tylenol #90 tabs Arthritis Pain) ibuprofen 800 mg tablet 800 mg PO TID PRN fever or pain 02/13/23 07/09/23 #90 tabs trazodone 100 mg tablet 100 mg PO QHS PRN sleep #90 tabs 04/08/23 07/09/23 dulaglutide 1.5 mg/0.5 mL 1.5 mg (0.5 mL) subcut QWEEK #2 mL 06/16/23 07/09/23 subcutaneous pen injector (Trulicity) sertraline 100 mg tablet 200 mg (2 x 100 mg) PO DAILY #180 07/08/23 07/09/23 tabs Previous Rx's Medication Instructions Recorded blood-glucose meter (OneTouch #1 ea 09/09/18 Verio Meter) lancets 33 gauge (OneTouch Delica #100 ea 12/19/20 Lancets) blood sugar diagnostic (OneTouch #50 ea 08/12/22 Verio test strips) atorvastatin 20 mg tablet 20 mg PO QHS #90 tabs 09/30/22 metformin 500 mg tablet,extended 500 mg PO DAILY #180 tabs 11/25/22 release 24 hr acetaminophen 650 mg 650 mg PO Q8H PRN fever or pain 02/13/23 tablet,extended release (Tylenol #90 tabs Arthritis Pain) ibuprofen 800 mg tablet 800 mg PO TID PRN fever or pain 02/13/23 #90 tabs trazodone 100 mg tablet 100 mg PO QHS PRN sleep #90 tabs 04/08/23 dulaglutide 1.5 mg/0.5 mL 1.5 mg (0.5 mL) subcut QWEEK #2 mL 06/16/23 subcutaneous pen injector (Trulicity) sertraline 100 mg tablet 200 mg (2 x 100 mg) PO DAILY #180 07/08/23 tabs Allergies Allergy/AdvReac Type Severity Reaction Status Date / Time Penicillins AdvReac Mild thrush Verified 07/09/23 13:59 General Stated Complaint: Arrhythmia RICK: 3 Review of Systems Narrative: Review of Systems: Constitutional: No fevers, chills, sweats Eye: No recent visual problems ENT: No ear pain, nasal congestion, sore throat Respiratory: No shortness of breath, cough Cardiovascular: No Chest pain, palpitations, syncope Gastrointestinal: No nausea, vomiting, diarrhea Genitourinary: No hematuria Francisco/Lymph: Negative for bruising tendency, swollen lymph glands Endocrine: Negative for excessive thirst, excessive hunger Musculoskeletal: No back pain, neck pain, joint pain, muscle pain, decreased range of motion Integumentary: No rash, pruritus, abrasions Neurologic: Alert & oriented X 4 Psychiatric: No anxiety, depression PFSH All Active Problems (Updated 07/09/23 @ 15:08 by Se Mancini MD) Paroxysmal supraventricular tachycardia (Acute) ADHD (attention deficit hyperactivity disorder) evaluation (Acute) SVT (supraventricular tachycardia) (Chronic) Chest pain (Acute) Routine medical exam (Acute) Smoker (Acute) Chronic cough (Acute) Depression (Chronic) Migraine headache without aura (Acute) Orthostatic hypotension (Acute) Hyperlipidemia (Acute) Posttraumatic stress disorder (Acute) Headache (Acute) Jerking (Acute) Muscle twitching (Acute) Dizziness (Acute) Pre-op evaluation (Acute) Diabetes type 2, controlled (Acute) Colorectal polyps (Acute ~08/31/18) S/P colonoscopy (Acute ~08/31/18) Encounter for screening colonoscopy (Acute) Low back pain (Acute) CTS (carpal tunnel syndrome) (Acute) Lateral epicondylitis/tennis elbow (Acute) Tobacco use disorder (Acute) Major depression, recurrent (Acute) Depression with anxiety (Chronic) Hidradenitis suppurativa (Acute) Candidiasis of skin (Acute) Carbuncle (Acute) Medical History TIA (transient ischemic attack) ? 2006 Bunion, left 05/05/23 Weeks Podiatry - no tx at this time. Surgical History S/P foot surgery May 2019 Hx of cholecystectomy H/O: hysterectomy Family History Mother Hypertension Hyperlipidemia COPD (chronic obstructive pulmonary disease) Father , aortic aneurysm Aortic aneurysm Alcohol use disorder Hypertension Paternal Grandfather Aortic aneurysm Maternal Grandfather Stroke Maternal Uncle Stroke Sister Psoriatic arthritis Anxiety Depression Brother Heart problem Social History Smoking/Tobacco Use Status: Current every day Tobacco Type: cigarettes Tobacco: How many years used: 35 Quit status: not considering quitting Smoking risk assessment performed?: Yes Alcohol Intake: never Drug use: Never Substance use type: does not use Adopted: No Caregiver/Support person: No Foster care: No Household members: other Details: Mother Housing: house Number of Children: 0 Communication Needs: None Education Level: college Do you need help understanding health information?: Never current occupation: [employer], [employer], [employer] Pets and animals: Yes Pets and animals: cat(s) and dog(s) Sexually active: No Do you think of yourself as: lesbian/d[place]/homosexual Current gender identity: trans [id number] What is your relationship status?: never How often do you talk on the phone with friends or family?: once per week How often do you get together with friends or relatives?: once per week Do you belong to any clubs or organized social groups?: yes Panel score (0-1 are the most socially isolated patients): 1 What type of physical activity do you participate in: walking, other Details: pickle ball and additional Details: pickle ball Duration: 60-90 minutes/day Frequency: 1-2 times per week Special alison needs: No Seatbelt use: always Helmet use: Yes Helmet use: always Drive intox or ride w/intox motor bus driver: No Female Reproductive History Menstrual Menopause type: surgical Date of menopause: 06/20/90 Exam Narrative Exam Narrative: Exam; vitals signs as reported above normal Constitutional; In no acute distress, afebrile General: cooperative, healthy appearing, comfortable and no acute distress HEENT: Head: normal to inspection, no palpable skull fracture and normocephalic atraumatic Eyes: : appearance normal, both eyes and all related structures EOM intact bilaterally Pupils: PERRL : conjunctiva normal Direct ophthalmoscopy: normal light reflex, normal conjunctiva, normal visual acuity Ears: Normal TM, normal external canal Nose: normal no rhinorreha Neck no JVD, supple non tender Neck: normal visual inspection, full ROM and no lymphadenopathy Chest: normal inspection of the chest Respiratory : normal respiratory effort and able to speak in complete sentences no wheezing no rales Cardio Rate: regular rate, rhythm: regular rhythm normal heart sounds S1 and S2 no murmurs, gallops, or rubs GI : normal to inspection, normal bowel sounds, soft, non tender, non distended, no organomegaly Back/Spine/ no CVA tenderness Thoracic/Lumbar Spine: no tenderness or deformities Skin no rashes or lesions Neuro: patient alert oriented x 4 and no meningeal signs, Cranial Nerves: CN's II-XI intact bilaterally, Cognition: normal cognition, Speech: speech normal, Gait: normal gait, Depp tendon reflexes normal 2+ muscle strength 5/5 bilaterally Extremities, no edema, full range of motion, normal strength Course Vital Signs Vital signs: Vital Signs Temperature 36.8 C 07/09/23 13:53 Pulse 94 H 07/09/23 13:53 Respiratory Rate 20 07/09/23 13:53 Blood Pressure 125/46 L 07/09/23 13:53 Pulse Oximetry 99 07/09/23 13:53 Temperature 36.8 C 07/09/23 13:53 Temperature Source Oral 07/09/23 13:53 Pulse 94 H 07/09/23 13:53 Respiratory Rate 20 07/09/23 13:53 Respiratory Effort Normal 07/09/23 14:05 Blood Pressure 125/46 L 07/09/23 13:53 Blood Pressure Position Sitting 07/09/23 13:53 Pulse Oximetry 99 07/09/23 13:53 Oxygen Delivery Method Room Air 07/09/23 13:53 Oxygen Flow Rate 0 07/09/23 13:53 Pain Level 0 07/09/23 13:53
[2023-07-09] MEDS: Normal Saline 1,000 ML 1000 ML IV (14:22)
[2023-07-09 14:31] LABS: Abs Immature Grans 0.02 10^3/uL (0.0-0.06); Absolute Basophil Count 0.06 10^3/uL (0.0-0.2); Absolute Eosinophil Count 0.18 10^3/uL (0.0-0.7); Absolute Lymphocyte Count 1.95 10^3/uL (1.2-3.4); Absolute Monocyte Count 0.35 10^3/uL (0.1-0.8); Absolute Neutrophil Count 5.45 10^3/uL (1.2-6.7); Basophils % 0.7; Eosinophils % 2.2; HCT 39.6 % (36.0-46.0); HGB 12.5 g/dL (11.2-15.7); Immature Grans % 0.2; Lymphocytes % 24.3; MCH 27.4 pg (27.0-33.0); MCHC 31.6 % (32.0-36.0); MCV 87 fL (80-95); MPV 8.6 fL (8.0-11.0); Monocytes % 4.4; Neutrophils % 68.2; Platelet Count 289 10^3/uL (130-400); RBC 4.57 10^6/uL (3.93-5.22); RDW 12.1 % (11.7-14.6); RDW-SD 38.5 fL; WBC 8.01 10^3/uL (4.4-10.8)
[2023-07-09 14:53] LABS: ALT 27 U/L (14-59); AST 16 U/L (15-37); Albumin 3.2 g/dL (3.4-5.0); Alkaline Phosphatase 98 U/L (46-116); Anion Gap 9.7 mmol/L (3-11); BUN 14 mg/dL (7-18); Bilirubin, Total 0.2 mg/dL (0.2-1.0); CO2 24.3 mmol/L (21.0-32.0); CREATININE 0.9 mg/dL (0.55-1.02); Calcium 8.5 mg/dL (8.5-10.1); Chloride 108 mmol/L (98-107); Estimated GFR 74.57 (mL/min/1.73m2); Glucose 148 mg/dL (74-106); Magnesium 1.7 mg/dL (1.8-2.4); Potassium 3.6 mmol/L (3.5-5.1); Sodium 142 mmol/L (136-145); Total Protein 6.5 g/dL (6.4-8.2); Troponin I < 50 ng/L (<or=60)
== END 2023-07-09 15:27 | disposition home or self-care (01) ==
PROVIDERS: Emergency Provider Emergency Medicine Emergency Medical Services; PCP Nurse Practitioner
DX: I47.10 Supraventricular tachycardia, unspecified (principal); Z91.148 Patient's other noncompliance with medication regimen for other reason; Z79.899 Other long term (current) drug therapy; E83.42 Hypomagnesemia; E78.5 Hyperlipidemia, unspecified; E11.9 Type 2 diabetes mellitus without complications; Z72.0 Tobacco use
CPT/HCPCS: 36415; 80053; 93005; 99284; 83735; 84484; 85025; 93010

== ENCOUNTER 2023-10-09 08:19 | Day surgery (SDC) | payer MEDICAID, SELFPAY ==
--- NOTE | 2023-10-08 19:18 | W.PREOPHP ---
Assessment and Plan Assessment and plan (1) Encounter for screening colonoscopy: Status: Acute Assessment and plan: We reviewed the plan for the screening colonoscopy today as well as the importance of it as part of routine health maintenance. I think she has a very good understanding of the nature of the procedure as well as the risks and the benefits. She was able to provide consent today, and we will proceed as planned. History of Present Illness History of Present Illness Chief Complaint: screening colonoscopy Narrative: 57 y/o female with history of TIA, ADHD, SVT (recently restarted her diltazem), depression, HLD, migraines, Type 2 DM and anxiety presents for colonoscopy screening pre-op. Her last screening was in 2019, which was remarkable for tubular adenomatous polyp. She denies a family history of colon cancer. She denies any changes in bowel habits including bloody or black tarry stools, abdominal pain, diarrhea or constipation. She denies constitutional symptoms. She denies chest pain, palpitations, dyspnea or dyspnea with exertion. She denies prior history or family history of adverse reactions or complications with anesthesia. The patient denies any history of stroke, TN, seizures, bleeding or clotting disorders. She denies having any implanted metal in her body. Since her last office visit, there have been no significant interval history of physical changes. PFSH All Active Problems ADHD (attention deficit hyperactivity disorder) evaluation (Acute) SVT (supraventricular tachycardia) (Chronic) Chest pain (Acute) Routine medical exam (Acute) Smoker (Acute) Chronic cough (Acute) Depression (Chronic) Migraine headache without aura (Acute) Orthostatic hypotension (Acute) Hyperlipidemia (Acute) Posttraumatic stress disorder (Acute) Headache (Acute) Jerking (Acute) Muscle twitching (Acute) Dizziness (Acute) Pre-op evaluation (Acute) Diabetes type 2, controlled (Acute) Colorectal polyps (Acute ~08/31/18) S/P colonoscopy (Acute ~08/31/18) Encounter for screening colonoscopy (Acute) Low back pain (Acute) CTS (carpal tunnel syndrome) (Acute) Lateral epicondylitis/tennis elbow (Acute) Tobacco use disorder (Acute) Major depression, recurrent (Acute) Depression with anxiety (Chronic) Hidradenitis suppurativa (Acute) Candidiasis of skin (Acute) Carbuncle (Acute) Medical History TIA (transient ischemic attack) ? 2007-Pt. confirms. States no residual effects and does not have to f/u with neuro anymore Brandon, left 05/05/23 Weeks Podiatry - no tx at this time. Surgical History S/P foot surgery May 2019 Hx of cholecystectomy H/O: hysterectomy Family History Mother Hypertension Hyperlipidemia COPD (chronic obstructive pulmonary disease) Father , aortic aneurysm Aortic aneurysm Alcohol use disorder Hypertension Paternal Grandfather Aortic aneurysm Maternal Grandfather Stroke Maternal Uncle Stroke Sister Psoriatic arthritis Anxiety Depression Brother Heart problem Social History Smoking/Tobacco Use Status: Current every day Tobacco Type: cigarettes Tobacco: How many years used: 35 Quit status: not considering quitting Smoking risk assessment performed?: Yes Alcohol Intake: never Drug use: Never Substance use type: does not use Adopted: No Caregiver/Support person: No Foster care: No Household members: other Details: Mother Housing: house Number of Children: 0 Communication Needs: None Education Level: college Do you need help understanding health information?: Never current occupation: [employer] Instructor, [employer], [employer] Pets and animals: Yes Pets and animals: cat(s) and dog(s) Sexually active: No Do you think of yourself as: lesbian/denton/homosexual Current gender identity: trans [id number] What is your relationship status?: never How often do you talk on the phone with friends or family?: once per week How often do you get together with friends or relatives?: once per week Do you belong to any clubs or organized social groups?: yes Panel score (0-1 are the most socially isolated patients): 1 What type of physical activity do you participate in: walking, other Details: pickle ball and additional Details: pickle ball Duration: 60-90 minutes/day Frequency: 1-2 times per week Special alison needs: No Seatbelt use: always Helmet use: Yes Helmet use: always Drive intox or ride w/intox motorcoach driver: No Do you feel safe at home: Yes Do you feel safe in your relationship?: Yes Female Reproductive History Menstrual Menopause type: surgical Date of menopause: 06/20/90 Meds Allergies and Home Medications Allergies Allergy/AdvReac Type Severity Reaction Status Date / Time Penicillins AdvReac Mild thrush Verified 10/09/23 08:42 Home Medications Medication Instructions Recorded Confirmed Type blood-glucose meter (OneTouch #1 ea 09/09/18 08/07/23 Rx Verio Meter) cholecalciferol (vitamin D3) 125 125 mcg PO DAILY 11/18/19 10/09/23 History mcg (5,000 unit) capsule lancets 33 gauge (OneTouch Delica #100 ea 12/19/20 08/07/23 Rx Lancets) acetaminophen 650 mg 650 mg PO Q8H PRN fever or pain 02/13/23 10/09/23 Rx tablet,extended release (Tylenol #90 tabs Arthritis Pain) ibuprofen 800 mg tablet 800 mg PO TID PRN fever or pain 02/13/23 10/09/23 Rx #90 tabs trazodone 100 mg tablet 100 mg PO QHS PRN sleep #90 tabs 04/08/23 10/09/23 Rx sertraline 100 mg tablet 200 mg (2 x 100 mg) PO DAILY #180 07/08/23 10/09/23 Rx tabs blood sugar diagnostic (OneTouch #50 ea 08/19/23 Rx Verio test strips) atorvastatin 20 mg tablet 20 mg PO QHS #90 tabs 10/04/23 10/09/23 Rx diltiazem HCl 120 mg 120 mg PO HS 10/06/23 10/09/23 History capsule,extended release 24 hr metformin 500 mg tablet,extended 500 mg PO BID #180 tabs 10/08/23 10/09/23 Rx release 24 hr Exam Const General: cooperative, healthy appearing and not in acute distress Neck Neck: normal visual inspection, no lymphadenopathy and supple Resp Effort & Inspection: normal respiratory effort Auscultation: clear to auscultation bilaterally Cardio Jugular venous pressure: no JVD Rate: regular rate Rhythm: regular rhythm Heart Sounds: S1 normal and S2 normal GI Inspection: normal to inspection Palpation: soft, no guarding, no hernias and nontender Percussion: normal to percussion Auscultation: normal bowel sounds Neuro General: patient alert, patient awake and patient oriented x3 Psych Appearance: grossly normal
--- NOTE | 2023-10-08 19:20 | W.PM.DSUDISC ---
Date of service: 10/09/23 Time of Service: 10:29 Discharge Plan Disposition Patient Disposition: Home Condition: Good Discharge Details Reason For Visit: screening colonoscopy Attending Provider: Ike Ramos Primary Care Provider: Sidra Balderas Home Meds and New Rx's Prescriptions: Continued cholecalciferol (vitamin D3) 125 mcg (5,000 unit) capsule 125 mcg PO DAILY (DME) lancets [OneTouch Delica Lancets] 33 gauge misc See Dose Instructions .ROUTE .MEDSUPPLY Qty: 100 12RF Dose Instruction: As directed Rx Instructions: Test daily (DME) blood-glucose meter [OneTouch Verio Meter] misc See Dose Instructions .ROUTE .MEDSUPPLY Qty: 1 0RF Dose Instruction: As directed Rx Instructions: As directed ibuprofen 800 mg tablet 800 mg PO TID PRN (Reason: fever or pain) Qty: 90 3RF acetaminophen [Tylenol Arthritis Pain] 650 mg tablet extended release 650 mg PO Q8H PRN (Reason: fever or pain) Qty: 90 3RF trazodone 100 mg tablet 100 mg PO QHS PRN (Reason: sleep) Qty: 90 1RF sertraline 100 mg tablet 200 mg PO DAILY Qty: 180 3RF (DME) OneTouch Verio test strips Strip See Dose Instructions .ROUTE .MEDSUPPLY Qty: 50 12RF Dose Instruction: As directed Rx Instructions: Test daily atorvastatin 20 mg tablet 20 mg PO QHS Qty: 90 3RF metformin 500 mg tablet extended release 24 hr 500 mg PO BID Qty: 180 3RF diltiazem HCl 120 mg capsule,extended release 24hr 120 mg PO HS Discontinued polyethylene glycol 3350 17 gram/dose powder 238 g PO ONCE Qty: 238 0RF Rx Instructions: take per colonoscopy instructions bisacodyl [Dulcolax (bisacodyl)] 5 mg tablet,delayed release (DR/EC) 5 mg PO ONCE Qty: 4 0RF Rx Instructions: take per colonoscopy instructions Discharge Instructions Instructions: Colorectal Polyps (GEN) Additional Instructions: Dear, it was so nice seeing you today, and I hope that your colonoscopy was fairly comfortable. I found several polyps during the procedure, and all were restricted to your rectum. These were all removed. They all will be sent off for testing, and once we know the nature of the polyps, we use that information to determine the timing of your next colonoscopy. To the naked eye, I did not see anything worrisome. Hopefully you will feel well this afternoon to make a quick recovery from the procedure. If you have any questions in the meantime, please let me know at any point 1. If tolerated, consume a soft, low fiber diet for 1-2 days. 2. Do not drive, drink alcohol, operate machinery, make critical decisions, or do activities that require coordination or balance for 24 hours. 3. Because air was put into your colon during the procedure, expelling air from your rectum (passing gas or farting) is normal. 4. You may not have a bowel movement for 1-3 days because of the colonoscopy prep. This is normal. 5. Go directly to the emergency room if you notice any of the following: Develop chills (warm to touch), or if you have a thermometer and your temperature is above 101 Difficulty breathing or difficultly swallowing Persistent vomiting Severe abdominal pain, other than gas cramps Severe chest pain Black, tarry stools Any bleeding ? exceeding one tablespoon 6. Call your physician if the site where your intravenous was started becomes red, swollen, painful, and warm to touch. 7. Your physician has reviewed your pre-procedure medications. Please continue to take those medications as previously ordered. You will be given specific information/education regarding any changes to your medications before leaving. Activity:: Activity as Tolerated Diet:: As Tolerated Discharge Orders Discharge Orders: Discharge Order (Routine); Ordered 10/08/23 Ordered By: Ike Ramos DS: Diagnosis Discharge Diagnosis (1) Encounter for screening colonoscopy: Status: Acute Asessment and Plan: Follow-up on polypectomy results
--- NOTE | 2023-10-08 19:21 | COLE_ITS ---
Date of service: 10/09/23 Time of Service: 10:34 Colonoscopy Report Date of procedure: 10/09/23 Pre-op diagnosis general: screening colonoscopy Post-op diagnosis procedure note: other (Rectal polyps) Procedure: colonoscopy with polypectomy Surgeon: Ike Ramos Anesthesia Type: General:No Airway Estimated blood loss (mL): 10 Pathology: other (Multiple rectal polyps ranging in size from 0.25 to 0.5 cm) Complications: None Disposition: same day Indications: Telma is 57 years old. She has a history of adenomatous polyps and needs her next screening colonoscopy Prep: Miralax/Dulcolax Procedure Start Time: 10:01 Procedure End Time: : Retraction Time: 7 Findings: Multiple rectal polyps Procedure Description: After the induction of monitored anesthetic care, and with the patient in left lateral decubitus position, I began by performing an external anorectal exam.? Perineum and skin were normal, as was the anal verge.? There was no evidence of external hemorrhoids.? Next, I performed a digital rectal exam.? I did not ap preciate any abnormal findings.? Next, I advanced a colonoscope into the rectal vault.? I performed retroflexion.? I this appeared normal.? I turned the, forward and insufflated the rectal vault. Within the rectum, there were multiple polyps. Narrowband imaging was used to assist with analysis. All the polyps were flat and ranged in size from 0.25 to 0.5 cm. These were all removed with cold forceps, some in piecemeal. All these were sent as a single specimen. Next I advanced through the sigmoid colon up towards the cecum.? The scope was noted to be in the cecum by identification of the ileocecal valve and appendiceal orifice.? I then began withdrawing the colonoscope using repeated irrigation as necessary for full evaluation of the colonic mucosa. ?Once the scope was withdrawn to the level of the rectum, great care was taken to examine portions of the rectal folds.? Finally, the scope was withdrawn and the patient was brought to the same-day surgery recovery unit as the anesthetic wore off. ?The findings and instructions were shared with the patient prior to discharge. Arverne Bowel Prep Arverne Bowel Prep Right Colon: 3 Left Colon: 3 Transverse Colon: 3 Total Score: 9
[2023-10-09 08:21] VITALS: BP 111/66; PULSE 66; RESP 18; TEMP 36.6; O2SAT 97
[2023-10-09] MEDS: Lactated Ringers 1,000 ML 80 ML IV (08:51)
--- NOTE | 2023-10-09 09:27 | W.ANESPRE ---
General Info Date of Service Date Performed: 10/09/23 Height: 5 ft 3 in Weight: 75.3 kg Body Mass Index (BMI): 29.4 Surgical Procedure: Operation Date: 10/09/23 10:05 Proposed Procedure Side Surgeon bola Ramos MD Meds Allergies and Home Medications Allergies Allergy/AdvReac Type Severity Reaction Status Date / Time Penicillins AdvReac Mild thrush Verified 10/09/23 08:42 Home Medication Medication Instructions Recorded blood-glucose meter (OneTouch #1 ea 09/09/18 Verio Meter) cholecalciferol (vitamin D3) 125 125 mcg PO DAILY 11/18/19 mcg (5,000 unit) capsule lancets 33 gauge (OneTouch Delica #100 ea 12/19/20 Lancets) acetaminophen 650 mg 650 mg PO Q8H PRN fever or pain 02/13/23 tablet,extended release (Tylenol #90 tabs Arthritis Pain) ibuprofen 800 mg tablet 800 mg PO TID PRN fever or pain 02/13/23 #90 tabs trazodone 100 mg tablet 100 mg PO QHS PRN sleep #90 tabs 04/08/23 sertraline 100 mg tablet 200 mg (2 x 100 mg) PO DAILY #180 07/08/23 tabs blood sugar diagnostic (OneTouch #50 ea 08/19/23 Verio test strips) atorvastatin 20 mg tablet 20 mg PO QHS #90 tabs 10/04/23 diltiazem HCl 120 mg 120 mg PO HS 10/06/23 capsule,extended release 24 hr metformin 500 mg tablet,extended 500 mg PO BID #180 tabs 10/08/23 release 24 hr Current Visit Medications: Current Medications Generic Name Dose Route Start Last Admin Trade Name Freq PRN Reason Stop Dose Admin Hyoscyamine Sulfate 0.125 mg 10/08/23 19:23 Hyoscyamine 0.125 Mg Sl/Oral/Chew SL 11/07/23 19:22 DIRECTED PRN Ringer's Solution 1,000 mls @ 80 mls/hr 10/09/23 06:00 10/09/23 08:51 IV 10/09/23 23:59 80 mls/hr INFUSION HEAVEN Administration IV Miscellaneous Supplies 1 each 10/09/23 06:00 Iv Access IV 10/09/23 23:59 DIRECTED HEAVEN Ondansetron HCl 4 mg 10/08/23 19:23 Ondansetron 4 Mg/2 Ml Vial IVP 11/07/23 19:22 Q4H PRN PRN Nausea / Vomiting Sodium Chloride 0 ml 10/09/23 06:00 Normal Saline Flush 10 Ml Syr IV 10/09/23 23:59 PRN PRN Sodium Chloride 0 ml 10/09/23 06:00 Normal Saline 10 Ml Vial IJ 10/09/23 23:59 DIRECTED PRN Sterile Water 0 ml 10/09/23 06:00 Water,Injection,Sterile 10 Ml Vial IJ 10/09/23 23:59 DIRECTED PRN PFSH Active Problems Active Problems: Problem Status Onset Code ADHD (attention deficit hyperactivity disorder) evaluation Z13.39 SVT (supraventricular tachycardia) I47.1 Chest pain R07.9 Routine medical exam Z00.00 Smoker F17.200 Chronic cough R05 Depression F32.9 Migraine headache without aura G43.009 Orthostatic hypotension I95.1 Hyperlipidemia E78.5 Posttraumatic stress disorder F43.10 Headache R51 Jerking R25.3 Muscle twitching R25.3 Dizziness R42 Pre-op evaluation Z01.818 Diabetes type 2, controlled E11.9 Colorectal polyps ~08/31/18 K63.5 S/P colonoscopy ~08/31/18 Z98.890 Encounter for screening colonoscopy Z12.11 Low back pain M54.5 CTS (carpal tunnel syndrome) G56.00 Lateral epicondylitis/tennis elbow M77.10 Tobacco use disorder F17.200 Major depression, recurrent F33.9 Depression with anxiety F41.8 Hidradenitis suppurativa L73.2 Candidiasis of skin B37.2 Carbuncle L02.93 Medical History Medical History TIA (transient ischemic attack) ? 2007-Pt. confirms. States no residual effects and does not have to f/u with neuro anymore Bunion, left 05/05/23 Weeks Podiatry - no tx at this time. Surgical History Surgical History S/P foot surgery May 2019 Hx of cholecystectomy H/O: hysterectomy Tobacco Smoking/Tobacco Use Status: Current every day Tobacco Type: cigarettes Alcohol Alcohol Intake: never Substance Use Substance use: Never Substance use type: does not use Vital Signs and Lab Results Vital Signs Most Recent Vital Signs in EMR: Most Recent Vital Signs Temp Pulse Resp BP Pulse Ox 36.6 C 66 18 111/66 97 10/09/23 08:21 10/09/23 08:21 10/09/23 08:21 10/09/23 08:21 10/09/23 08:21 Point of Care Results Point of Care Results: Finger Stick Blood Glucose 131 10/09/23 08:44 Lab Results Blood Type / Crossmatch: No Data to Display Complete Blood Count: No Data to Display Complete Metabolic Panel: No Data to Display Liver Function Panel: No Data to Display Coagulation Panel: No Data to Display Cardiac Panel: No Data to Display Arterial Blood Gas: No Data to Display Venous Blood Gas: No Data to Display Pancreas Panel: No Data to Display Thyroid Panel: No Data to Display Infectious Disease: No Data to Display Blood Cultures: No Data to Display Toxicology Panel: No Data to Display Imaging and Studies Imaging and Studies Study information below may be from another EMR and interpreted by another provider. Please see original notes in EMR for more complete details. EKG Summary: EKG PATIENT NAME: Telma De La Cruz UNIT #: [id number] ORDERING PROVIDER: Gretel Wallis M.D. PRIMARY CARE PROVIDER: SIDRA RODGERS NP DATE/TIME OF SERVICE: 07/09/23 1356 : 1965 PERFORMING LOCATION: ER APPROVED REPORT Exam: Resting ECG Reason for Exam: SVT Patient Location: E HR:94 bpm ECG Measurements Heart Rate 94 AXIS UT 135 P 90 QRSd 70 QRS 60 QT 346 T66 QTc 434 Conclusion Sinus rhythm...normal P axis, V-rate 60- 99 Nonspecific T abnormalities, anterior leads...T <-0.10mV, V2-V4 <Electronically signed by SHAHLA GARCIA MD in [place]> E-Sign Date: 07/09/23 E-Sign Time: 1456 ADDENDUM APPROVED REPORT Exam: Resting ECG Reason for Exam: SVT Patient Location: E HR:94 bpm ECG Measurements Heart Rate 94 AXIS UT 135 P 90 QRSd 70 QRS 60 QT 346 T66 QTc 434 Conclusion Sinus rhythm...normal P axis, V-rate 60- 99 Nonspecific T abnormalities, anterior leads...T <-0.10mV, V2-V4 I have reviewed and I agree with the emergency room physician's ECG interpretation. Electronically signed by: <Electronically signed by Irene Escobar M.D. in OV> 07/11/23 1252 Cosigned by: Stress Test Summary: atient Name: Telma De La Cruz Unit #: [id number] Loc: Ordering Provider: Sidra Rodgers NP Status: [facility] Primary Care Provider: Sidra Rodgers NP Date of Exam: 03/29/21 Sex: F Admission Date: 03/29/21 : 1965 Age: 55 APPROVED REPORT Exam: Exercise Treadmill Patient Location: Out-Patient Room/Bed: Stress Nurse: Shaneka Deshpande RN Ordering Provider:SIDRA RODGERS, Contact Number: [phone] BMI: 30.81 Baseline Rhythm: Sinus Rhythm Comment: Inverted T wave lead V2 Indications: Chest pain, SVT Medical History Medical History: SVT, smoker (current), hyperlipidemia, orthostatic hypotension, diabetes type II, obesity, PTSD, depression Cardiac Medications: Metformin, magnesium oxide, diltiazem, atorvastatin, aspirin, nicotine inhalation cartridge Allergies: Penicllins Cardiac Risk Factors: Hyperlipidemia, smoker (current), diabetes type II, obesity, family hx Previous Cardiac Procedures: None Pretest Chest Pain Characteristics: None Exercise History: Physically active Physical Disabilities: None Lung Sounds: Clear to auscultation Heart Sounds: Regular Stress Test Details Test: Exercise stress testing was performed using a Gurjit protocol. Nuclear Acquisition: Rest Tc-99m/Stress Tc-99m 1 day Rest Isotope: Tc-99m Sestamibi. Dose: 9.4 Date: 03/29/2021 Injection Time: 0915 Stress Isotope: Tc-99m Sestamibi. Dose: 32.8 Date: 03/29/2021 Injection Time: 1050 HR Resting HR Supine: 63 bpmMax Heart Rate (APMHR): 165.403035 bpm Resting HR Standin bpmTarget HR (85% APMHR): 140.877904 bpm Max HR Achieved: 154 bpm % of APMHR: 93.33 Recovery HR: 68 bpm HR response to stress: Normal HR response to stress Comment: Diltiazem held for 24 hrs BP Resting BP Supine: 112/62 mmHg Resting BP Standin/66 mmHg Max BP: 148/62 mmHg Recovery BP: 116/62 mmHg BP response to stress: Normal blood pressure response to stress. ECG Resting ECG: Sinus Rhythm Ectopy: None Comment: Inverted T wave lead V2 Stress ECG: Sinus Tachycardia ST Change: No significant ST segment changes noted Arrhythmia: Rare PACs Recovery ECG: Sinus Rhythm Recovery ST Change: No significant ST segment changes noted Recovery Arrhythmia: Rare PAC Clinical Reason for Termination: Fatigue Stress Symptoms: General Fatigue Exercise duration: 8 min58 sec Highest Stage Reached: Stage 3: 3.4 mph at 14% grade. Exercise capacity: 10.16 METs Rate Pressure Product: 94305 Stress ECG Conclusion 1. The resting electrocardiogram was normal 2. The patient exercised on the Gurjit protocol and completed a workload of 10.16 METS, stopping due to fatigue 3. Normal heart rate and blood pressure response to exercise. Patient achieved 93% of predicted heart rate for age 4. Electrocardiographically there was no evidence of myocardial ischemia 5. There were no significant dysrhythmias Stress Test Summary STAGETime (mins)Speed (mph)Grade (%)HRBPSYMPTOMSMETS Lwdygz71678/62 Jagkextk28162/66SpO2 98% 131.78013876/64SpO2 96%4.6 262.526960751/60SpO2 96%7 393.525299BeO8 94%10.2 1 min bgxfefeg018027/62SpO2 95% 3 min imlviuwe71653/64SpO2 97% 6 min njguowjj14194/62SpO2 97% MPI Conclusion Normal myocardial perfusion without evidence of ischemia or prior infarction EF 57% Radiologist Interpretation Radiologist agrees with Cut Out Machine Operator's Interpretation. Radiologist Interpretation by: Odilia Taylor MD Interpretation Date/Time: 03/30/2021 15:37:52 Ordered By: Sidra Rodgers NP CC: [employer] Dictated By: Brandon Doll M.D. 03/29/21 1212 <Electronically signed by Brandon Doll M.D. in [place]> 04/02/21 1038 Transcribed By: Brandon Doll MD This is privileged, confidential information intended only for the provider named. Any use or distribution by any person other than this provider is strictly prohibited. If you receive this report in error, please notify us immediately at [phone] and return the original report to us at the address above. Thank-you. Anesthesia Assessment and Plan Anesthesia History Personal History: No History of Anesthesia Complications Family History: No Family History of Anesthesia Complications Exercise Tolerance Exercise Tolerance: Metabolic Equivalents<4 Pertinent Negatives Pertinent Negatives: No Symptoms of GERD, No Major Cardiovascular Symptoms or Complaints, No Major Pulmonary Symptoms or Complaints and No History of CVA/TIA Cardiac & Pulmonary Exam Cardiac Exam: Normal S1/S2 Heart Sounds Pulmonary Exam: Clear Bilateral Breath Sounds Implantable Cardiac Device Does patient have a Pacemaker or an ICD?: No Airway Exam Known Difficult Airway: No Mallampati Class: 3 Mouth Opening: Normal (> 3cm) Thyromental Distance: Greater than 3 cm Neck Range of Motion: Full ROM Neck Circumference: Normal Teeth Condition: Generalized Poor Dentition ASA Classification ASA Score: ASA 2 Emergency Case?: No NPO Status NPO Status: NPO Clears >2 hours, Solids >8 hours Anesthesia Plan Resuscitation Status: Full Code Anesthesia Technique: General Anesthesia Airway Planned: Natural Airway Monitors Used: Standard Monitors
[2023-10-09 09:36] VITALS: BMI 29.4
--- NOTE | 2023-10-09 10:03 | BOWEL_PTH ---
PATIENT: Telma De La Cruz LOC: [facility] U#:[id number] AGE/SX: 57/F ROOM: RE10/09/[address]: Ike Ramos MD : 1965 BED: DIS: 10/09/2023 SPEC #: [id number] RECD: 10/09/23 12:53 STATUS: SENTHIL REQ #: [id number] NICOLAS: 10/09/23 10:[address]: Ike Ramos DEPT: Surgical Specimen RECD BY: Barby Atkins ENTERED: 10/09/23 12:53 SP TYPE: Bowel OTHR DR: Sidra Balderas APRN Tissues: 1 - BIOPSY BOWEL Procedures: GROSS AND MICRO LEVEL 4 Comments: [id number]
[2023-10-09 10:26] VITALS: BP 94/75; PULSE 69; RESP 16; TEMP 36.6; O2SAT 99
--- NOTE | 2023-10-09 10:29 | W.ANESPOSTOP ---
Postoperative Evaluation Date, Time and Location Date Performed: 10/09/23 Time Performed: : Patient Location: Day Surgery Unit Vital Signs Most Recent Imported Vital Signs: Most Recent Vital Signs Temp Pulse Resp BP Pulse Ox 36.6 C 69 16 94/75 L 99 10/09/23 10:10/09/23 10:10/09/23 10:10/09/23 10:10/09/23 10:26 Pain Score Most Recent Pain Score: Most Recent Pain Score Pain Level 0 10/09/23 10:26 Assessment Mental Status: Awake (Alert & Oriented to Patient Baseline) Airway and Respiratory Function: Patent airway with normal (patient baseline) respiratory exam Cardiovascular Function: Hemodynamically Stable Hydration Status: Adequately Hydrated Nausea & Vomiting: No Nausea or Vomiting Pain: Pt. Denies Any Pain Peripheral Nerve Block: Patient did not receive a nerve block
[2023-10-09 11:00] VITALS: BP 106/64; PULSE 67; RESP 16; TEMP 36.4; O2SAT 99
== END 2023-10-09 11:14 | disposition home or self-care (01) ==
LOC: SUR 08:19
PROVIDERS: PCP Nurse Practitioner; Visit Provider Surgery
PROC: 0DJD8ZZ Inspection of Lower Intestinal Tract, Via Natural or Artificial Opening Endoscopic (ICD-10-PCS; CPT 45378; principal; 2023-10-09 10:00)
DX: Z12.11 Encounter for screening for malignant neoplasm of colon (principal); K63.5 Polyp of colon; Z86.010 Personal history of colon polyps; F17.200 Nicotine dependence, unspecified, uncomplicated; F41.8 Other specified anxiety disorders; E78.5 Hyperlipidemia, unspecified; E11.9 Type 2 diabetes mellitus without complications; E66.9 Obesity, unspecified
CPT/HCPCS: 45380; 88305; J2704

== ENCOUNTER 2024-06-03 01:13 | Outpatient (CLI) | payer MEDICAID, SELFPAY ==
--- NOTE | 2024-06-03 14:05 | DI.RAD_ITS ---
Exam(s) XR FOOT LT COMPLETE EXAM: XR FOOT LT COMPLETE CLINICAL HISTORY: Left foot pain,m79.672. TECHNIQUE: 2D digital imaging was performed of the left foot. Three images were obtained. AP, obli que and lateral views were obtained. COMPARISON: No exams were available for comparison FINDINGS: BONES: No acute fracture is present. No bony destructive lesion is seen. There is an enthesophyte at the posterior calcaneus. JOINTS: No dislocation present. Marked degenerative changes are seen at the 1st MTP joint characteriz ed by joint space narrowing and osteophytes. There also is mild lateral subluxation of the proximal phalanx relative to the 1st metatarsal. Mild hallux valgus deformity is present. SOFT TISSUE: Normal. IMPRESSION: At the 1st MTP joint there are marked degenerative changes, mild hallux valgus and mild subluxation o f the proximal phalanx relative to the 1st metatarsal. DATA REPOSITORY: RADIATION DOSE DELIVERED:
== END 2024-06-03 01:33 ==
PROVIDERS: PCP Nurse Practitioner; Visit Provider Podiatrist
DX: M19.072 Primary osteoarthritis, left ankle and foot (principal); M20.12 Hallux valgus (acquired), left foot
CPT/HCPCS: 73630

== ENCOUNTER 2024-07-28 14:10 | Outpatient (CLI) | payer MEDICAID, SELFPAY ==
--- NOTE | 2024-07-28 14:16 | W.NUTRFU ---
Date of service: 07/27/24 Time of Service: 13:00 Nutrition Note NOTE: Telma arrives for referred nutrition appt for discussing glucose management after seeing her A1C climb from 6.5 to 7.o at her last visit with her PCP. She takes metformin BID and atorvastatin currently. She shares she is caring for her mother on hospice currently, which carries higher stress levels for her and has impacted her activity and sleep. Self care was emphasized with brief discussion on how stress, sleep and exercise are part of the 4 pillars of health along with diet when it comes to glucose mgt. She notes she is terrible at eating veggies but does like them. Estimates she had 3 servings of veggies over the last week. She has a goal to eat a salad once per day but states this has been hard and inconsistent. We reviewed some target macros and also focused on setting goals for added sugar and fiber. We reviewed some sample menus of her targets of 1600 kcals, 120g protein, 160g total CHO and 53g fat. She has a follow up scheduled with me 09/28 to see how things are going and work on action plans if she needs to work more specifically in certain areas. Time Spent in Nutritional Counseling and Treatment: 45 min
== END 2024-07-28 14:11 | disposition home or self-care (01) ==
LOC: DS 14:10
PROVIDERS: PCP Nurse Practitioner; Visit Provider Dietitian, Registered
DX: E11.9 Type 2 diabetes mellitus without complications (principal)
CPT/HCPCS: 00123; 97802

== ENCOUNTER 2024-09-30 01:20 | Outpatient (CLI) | payer MEDICAID, SELFPAY ==
--- NOTE | 2024-09-30 08:00 | DI.RAD_ITS ---
Exam(s) XR ELBOW RT COMPLETE EXAM: XR ELBOW RT COMPLETE CLINICAL HISTORY: pain, s/p fall,no elbow impact,R52,W19.XXXA. TECHNIQUE: 2D digital imaging was performed. COMPARISON: No exams were available for comparison FINDINGS: 3 views No evidence of acute fracture nor joint effusion and there is no swelling of the olecranon bursa. Th e radial head and neck appear unremarkable. No degenerative changes evident Adjacent to the medial epicondyle there is a corticated calcification measuring 6 x 3 [address] This is mo st probably within the distal insertional aspect of the common flexor tendon. On the opposite-latera l aspect of the elbow there is a similar but slightly smaller corticated calcification just lateral t o the lateral epicondyle most probably within the common extensor tendon. IMPRESSION: No fracture nor joint effusion. No degenerative changes Findings bilaterally as described above which probably are associated with bilateral epicondylitis. DATA REPOSITORY: RADIATION DOSE DELIVERED:
--- NOTE | 2024-09-30 08:15 | DI.CTLCSR_ITS ---
Exam(s) CT CHEST LUNG CANCER SCREEN EXAM: CT CHEST LUNG CANCER SCREEN CLINICAL HISTORY: Screening for lung cancer,cigarette smoker, f17.210. TECHNIQUE: Imaging Protocol: Low Dose Technique CONTRAST MATERIAL: None COMPARISON: Prior chest x-ray 09/01/2020 FINDINGS: CHEST: LUNGS: There are no ominous pulmonary nodules. There are no confluent infiltrates. Mild scarring in the left lung base posterior basal segment left lower lobe. No pleural effusions. MEDIASTINUM: There is no obvious hilar nor mediastinal adenopathy. CARDIAC: Heart size is normal. There is no pericardial effusion.Caliber of the thoracic aorta is wit hin normal limits. OTHER: No adrenal masses. Gallbladder noted to be surgically absent. OSSEOUS: No significant osseous lesions.No fractures.. IMPRESSION: 1. No significant lung nodules. 2. No infiltrates nor pleural effusions nor intrathoracic adenopathy. 3. Lung RADS Cat 1 - Negative: No nodules and definitely benign nodules Lung-RADS 1.0 CATEGORIES: Category 0 - Prior chest CT exam(s) being located for comparison. Category 1 - Annual screening in 12 months. No nodules or definitely benign nodules. Category 2 - Annual screening in 12 months. Benign appearance. Nodules with low likelihood of becomin g active cancer. Category 3 - 6-month follow-up. Probably benign. Short-term follow-up suggested. Nodules with low lik elihood of becoming active cancer. Category 4A - 3-month follow-up and CT/PET if >8 mm in size. Suspicious finding. Findings which requi re additional testing. Category 4B - Findings which require additional testing and tissue sampling. Category 4X - Category 3 or 4 nodules with additional features or imaging findings that increases the suspicion of malignancy. Modifier S- Potentially clinically significant findings (non lung cancer) RADIATION DOSE DELIVERED: 36.57mGy.cm Total DLP DATA REPOSITORY: All CT scans at this facility are submitted to the National Radiology Data Registry (NRDR) Dose Index Registry (DIR) with the [employer] (A[employer]). RADIATION OPTIMIZATION: All CT scans at this facility use at least one of these dose optimization te chniques: automated exposure control; mA and/or kV adjustment per patient size (includes targeted exa ms where dose is matched to clinical indication); or iterative reconstruction.
== END 2024-09-30 01:40 ==
LOC: DI 01:20
PROVIDERS: PCP Nurse Practitioner; Visit Provider Nurse Practitioner
DX: Z12.2 Encounter for screening for malignant neoplasm of respiratory organs (principal); W19.XXXA Unspecified fall, initial encounter; F17.210 Nicotine dependence, cigarettes, uncomplicated; M25.521 Pain in right elbow
CPT/HCPCS: 71271; 73080

== ENCOUNTER 2024-12-24 01:07 | Outpatient (CLI) | payer MEDICAID, SELFPAY ==
[2024-12-27 10:22] LABS: Lyme Ab w Rflx to Lyme Confirm Negative (Negative)
[2024-12-27 20:35] LABS: Anaplasma phagocytophilum Negative (Negative); B. miyamotoi PCR Negative (Negative); Babesia divergens/MO-1 Negative (Negative); Babesia duncani Negative (Negative); Babesia microti Negative (Negative); Ehrlichia chaffeensis Negative (Negative); Ehrlichia ewingii/canis Negative (Negative); Ehrlichia muris eauclairensis Negative (Negative)
== END 2024-12-24 01:08 | disposition home or self-care (01) ==
LOC: LBO 01:07
PROVIDERS: PCP Nurse Practitioner; Visit Provider Family Medicine
DX: R53.83 Other fatigue; L29.9 Pruritus, unspecified
CPT/HCPCS: 36415; 87798; 86618

== ENCOUNTER 2025-03-02 13:03 | Outpatient (CLI) | payer MEDICAID, SELFPAY ==
--- NOTE | 2025-03-02 09:45 | DI.RAD_ITS ---
Exam(s) XR FOOT LT COMPLETE EXAM: XR FOOT LT COMPLETE CLINICAL HISTORY: M79.672 Pain at the base of the 2-4th toes. TECHNIQUE: 2D digital imaging was performed. Three views. COMPARISON: CR XR FOOT LT COMPLETE from 06/03/2024 FINDINGS: BONES: No acute fracture is present. No bony destructive lesion is seen. Minimal enthesophyte at the posterior calcaneus. JOINTS: No dislocation present. There is mild 1st metatarsal varus and hallux valgus. There is mild lateral subluxation at the 1st MTP joint. There is narrowing of the MTP joint and periarticular spurring. There is also spurring at the sesamoids of the 1st metatarsal head. Remaining joint show no s ignificant degenerative changes. SOFT TISSUE: Normal. IMPRESSION: Stable 1st MTP joint degenerative changes and hallux valgus. DATA REPOSITORY: RADIATION DOSE DELIVERED:
== END 2025-03-02 13:23 ==
LOC: DI 03-17 13:03
PROVIDERS: PCP Nurse Practitioner; Visit Provider Family Medicine
DX: M19.072 Primary osteoarthritis, left ankle and foot (principal); M20.12 Hallux valgus (acquired), left foot
CPT/HCPCS: 73630

== ENCOUNTER → 2025-06-29 00:06 | Outpatient (CLI) | payer MEDICAID, SELFPAY ==
--- NOTE | 2025-06-29 12:09 | DI.MAMMO_ITS ---
Exam(s) MAMMO SCREENING EXAM: MAMMO SCREENING CLINICAL HISTORY: screening, Z12.39. TECHNIQUE: Bilateral full field digital CC and MLO mammographic images were obtained with 3D tomosynthesis and utilizing computer aided detection (CAD). COMPARISON: Prior mammograms were reviewed. FINDINGS: There has been no significant change in the appearance and distribution of the fibroglandular tissue. Nodular density in the left breast medial of center is unchanged from at least 2017 and therefore benign. There are no new spiculated masses in either breast. There are few benign-appearing secretory-type calcifications in the left breast which have increased from the most recent mammogram 2021. Lesser amount of same on the right side. There is no significant architectural distortion nor skin thickening-retraction. IMPRESSION: Benign findings. No radiographic evidence of malignancy. BI-RADS Category 2 - Benign Findings Breast Density - Category B - There are scattered areas of fibroglandular density. Breast density Category C or D implies that the patient has dense breast tissue. Dense breast tissue can make it harder to find cancer on a mammogram. Dense breast tissue is also associated with an increased risk of breast cancer. This information about the result of the mammogram report was provided to the patient to raise their awareness. Use this report when you speak with the patient about their risks for breast cancer, which includes their family history. At that time, you may recommend additional screening tests (Ultrasound or MRI) as these tests may add significant information. A negative radiographic report should not delay biopsy if a dominant or clinically suspicious mass is present. Up to ten percent of cancers are not identified on mammography. A negative report may reinforce clinical impression. Adenosis and dense breasts may obscure an underlying neoplasm. False positive reports average 6 to 10%. Patient will receive a letter notifying them of these results.
== END ==
LOC: DI 00:07
DX: Z12.31 Encounter for screening mammogram for malignant neoplasm of breast (principal); R92.323 Mammographic fibroglandular density, bilateral breasts
CPT/HCPCS: 77063; 77067